=== PATIENT | female | born 1975 | race Asian ===

== ENCOUNTER 2017-02-14 11:27 | Outpatient (CLI) | payer MEDICAID ==
--- NOTE | 2017-02-14 15:08 | Ultrasound Report ---
LEFT BREAST ULTRASOUND: 02/14/2017 CLINICAL INDICATION: Palpable abnormality on clinical exam. TECHNIQUE: Real-time scanning was performed with fraud representative static images obtained. FINDINGS: Ultrasound of the 12 o'clock left breast was performed. The patient was unable to localiz e a palpable abnormality at the time of the examination. Unremarkable parenchymal lobules are seen. No discrete solid or cystic mass is identified. No sonog raphically suspicious findings are seen. IMPRESSION: NEGATIVE EXAMINATION. RECOMMENDATION: Continued clinical evaluation of the palpable abnormality. Routine annual screening , unless otherwise clinically indicated. BI-RADS category 1, negative. JOB #: [id number] EXT JOB #:
--- NOTE | 2017-02-14 18:52 | Mammography Report ---
DIGITAL DIAGNOSTIC BILATERAL MAMMOGRAM: 02/14/2017 CLINICAL INDICATION: A 42-year-old with palpable abnormality 12 o'clock left breast on clinical exam ination, left upper breast pain. TECHNIQUE: Bilateral CC and MLO views, bilateral laterally exaggerated CC views, left true lateral v iew. The patient was unable to identify a palpable abnormality at the time of the examination, so no marker was placed. The patient described the pain as extending across the entire upper left breast. This is the patient's baseline examination. The breasts demonstrate heterogeneously dense fibroglandular parenchyma bilaterally. A few coarse an d punctate, typically benign calcifications are present. No suspicious masses, clustered microcalcif ications, or regions of architectural distortion are identified. Specifically, no mammographic abnor mality is appreciated at the 12 o'clock position of the left breast, at the site of palpable abnormal ity indicated on the requisition. Please also refer to left breast ultrasound of the same day. IMPRESSION: BENIGN FINDINGS. RECOMMENDATION: ROUTINE ANNUAL SCREENING UNLESS OTHERWISE CLINICALLY INDICATED. BIRADS CATEGORY: 2, BENIGN FINDINGS. STANDARD QUALIFYING STATEMENTS 1. This examination was reviewed with the aid of Computed-Aided Detection (CAD). 2. A negative or benign imaging report should not delay biopsy if clinically suspicious findings are present. Consider surgical consultation if warranted. More than 5% of cancers are not identified b y imaging. 3. Dense breasts may obscure an underlying neoplasm. JOB #: [id number] EXT JOB #:[id number]
== END 2017-02-14 11:28 | disposition home or self-care (01) ==
LOC: DI 11:27
PROVIDERS: ATTEND Nurse Practitioner Gerontology
DX: N63.22 Unspecified lump in the left breast, upper inner quadrant (principal); N63.21 Unspecified lump in the left breast, upper outer quadrant
CPT/HCPCS: 76642; 77066

== ENCOUNTER 2018-01-05 19:10 | Emergency (ER) | payer OTHER, MEDICAID ==
[2018-01-05 19:21] VITALS: BP 147/88
--- NOTE | 2018-01-05 19:44 | ED Physician Documentation ---
PD HPI LOWER EXT INJURY - Stated complaint Stated Complaint: L ANKLE PX/FALL - Chief complaint Chief Complaint: Ext Problem - History obtained from History obtained from: Patient - History of Present Illness PD HPI LOW EXT INJURY LOCATION: Left, Ankle Pain level max: 6 Pain level now: 3 Improved by: Rest, Ice, Immobilization Worsened by: Moving, Other (walking) Associated symptoms: Swelling. No: Weakness, Numbness, Tingling - Additional information Additional information: Patient is a 42-year-old female who presents to the emergency department after tripping and falling down the stairs at this morning. She rolled the left ankle. This happened while she was at work. She has been ambulating on the ankle throughout the day but has become more painful and swollen. Came in tonight for evaluation. Took Tylenol prior to arrival and pain is well controlled. Review of Systems : denies: Now EGA Musculoskeletal: denies: Neck pain, Back pain Neurologic: denies: Focal weakness, Numbness, Head injury PD PAST MEDICAL HISTORY - Past Medical History Past Medical History: No Cardiovascular: None Respiratory: None Neuro: None Endocrine/Autoimmune: None GI: None PERCUSSION TUNER: None : None HEENT: None Psych: None Musculoskeletal: None Derm: None - Past Surgical History Past Surgical History: No - Allergies Allergies/Adverse Reactions: Allergies Allergy/AdvReac Type Severity Reaction Status Date / Time codeine [Codeine] Allergy Mild Hives Verified 01/05/18 19:20 erythromycin base Allergy Edema Verified 01/05/18 19:20 cillins Allergy Intermediate Edema Uncoded 01/05/18 19:20 oranges AdvReac Intermediate Nausea Uncoded 01/05/18 19:20 - Social History Does the pt smoke?: Yes Smoking Status: Current every day smoker Does the pt drink ETOH?: Yes Does the pt have substance abuse?: No - Immunizations Immunizations are current?: Yes PD ED PE NORMAL - Vitals Vital signs reviewed: Yes - General General: Alert and oriented X 3, No acute distress - HEENT HEENT: Moist mucous membranes - Neck Neck: Supple, no meningeal sign - Derm Derm: Warm and dry - Extremities Extremities: Other (L ankle - TTP and swelling over the lateral malleolus. NVI. o/w normal ankle exam. ) - Neuro Neuro: Alert and oriented X 3 - Psych Psych: Normal mood, Normal affect Results - Vitals Vitals: Vital Signs - 24 hr 01/05/18 19:17 Temperature 36.9 C Heart Rate 79 Respiratory 16 Rate Blood Pressure 147/88 H O2 Saturation 98 Oxygen O2 Source Room air - Rads (name of study) L ankle xray Radiology: Prelim report reviewed, EMP read contemporaneously, See rad report ( normal ankle) PD MEDICAL DECISION MAKING - ED course Complexity details: reviewed results, re-evaluated patient, considered differential, d/w patient, d/w family ED course: Patient is a 42-year-old female with an ankle sprain. X-rays are negative. Placed in a gel splint for comfort. Will continue supportive care. Labor and industries paperwork filled out. Counseled regarding missed fractures and may need repeat xrays if not improving. Patient counseled regarding signs and symptoms for which I believe and urgent re-evaluation would be necessary. Patient with good understanding of and agreement to plan and is comfortable going home at this time This document was made in part using voice recognition software. While efforts are made to proofread this document, sound alike and grammatical errors may occur. - Sepsis Event Vital Signs: Vital Signs - 24 hr 01/05/18 19:17 Temperature 36.9 C Heart Rate 79 Respiratory 16 Rate Blood Pressure 147/88 H O2 Saturation 98 Oxygen O2 Source Room air Departure - Departure Disposition: 01 Home, Self Care Clinical Impression: Ankle sprain Qualifiers: Encounter type: initial encounter Involved ligament of ankle: unspecified ligament Laterality: left Qualified Code(s): S93.402A - Sprain of unspecified ligament of left ankle, initial encounter Condition: Good Instructions: ED Sprain Ankle W X Ray Follow-Up: your,doctor in 1 week [Other] Comments: You can use motrin or tylenol as needed for pain. Return if you worsen. You may bear weight as tolerated. Discharge Date/Time: 01/05/18 19:52
--- NOTE | 2018-01-05 20:08 | XRAY Report ---
Reason: rolled her ankle today, now bruising and pain Procedure Date: 01/05/2018 Accession Number: [id number] / [id number] Procedure: XR - Ankle 3 View LT CPT Code: FULL RESULT: EXAM: LEFT ANKLE RADIOGRAPHY EXAM DATE: 01/05/2018 07:44 PM. CLINICAL HISTORY: Rolled her ankle today, now bruising and pain. COMPARISON: ANKLE 3 VIEW LT 09/02/2012. TECHNIQUE: 3 views. FINDINGS: Bones: No fracture or focal bony lesion. Joints: No evidence of dislocation. Soft Tissues: There is lateral ankle soft tissue swelling. IMPRESSION: No evidence of fracture or dislocation. RADIA
== END 2018-01-05 19:52 | disposition home or self-care (01) ==
LOC: ED 19:10
DX: S93.402A Sprain of unspecified ligament of left ankle, initial encounter (principal); W10.9XXA Fall (on) (from) unspecified stairs and steps, initial encounter; Y99.0 Civilian activity done for income or pay
CPT/HCPCS: 1040M; 73610; 99283

== ENCOUNTER 2018-04-11 03:33 | Inpatient (IN) | payer MEDICAID ==
[2018-04-11] MEDS ORDERED: SODIUM CHLORIDE 0.9% 1,000 ML IV ONE ×4 (03:49→05:52)
[2018-04-11] MEDS ORDERED: MORPHINE 2 MG/ML CARPUJECT IVP STA (03:49)
[2018-04-11] MEDS ORDERED: ONDANSETRON 4 MG/2 ML VIAL IVP STA (03:50)
--- NOTE | 2018-04-11 03:52 | ED Physician Documentation ---
PD HPI ABD PAIN - Stated complaint Stated Complaint: ABD PX - Chief complaint Chief Complaint: Abd Pain - History obtained from History obtained from: Patient, Family - History of Present Illness Timing - onset: Yesterday Timing - duration: Hours (28) Timing - details: Gradual onset, Waxing and waning Pain level max: 10 Pain level now: 10 Quality: Aching, Pain Location: All over / everywhere Radiation: Other (non-radiating) Improved by: Laying still Worsened by: Moving Associated symptoms: Fever, Nausea, Vomiting, Diarrhea. No: Constipation, Melen a, Hematochezia, Dysuria, Hematuria, Near syncope / syncope Similar symptoms before: Has not had sx before Recently seen: Not recently seen Review of Systems Ten Systems: 10 systems reviewed and negative Constitutional: reports: Fever (subjective). 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 : None HEENT: None Psych: None Musculoskeletal: None Derm: None - Past Surgical History Past Surgical History: No - Present Medications Home Medications: Ambulatory Orders Medication Instructions Recorded Confirmed Cream Topical For Psoriasis 04/11/18 - Allergies Allergies/Adverse Reactions: Allergies Allergy/AdvReac Type Severity Reaction Status Date / Time codeine [Codeine] Allergy Mild Hives Verified 04/11/18 03:51 erythromycin base Allergy Edema Verified 04/11/18 03:51 cillins Allergy Intermediate Edema Uncoded 04/11/18 03:51 oranges AdvReac Intermediate Nausea Uncoded 04/11/18 03:51 - Social History Does the pt smoke?: Yes Smoking Status: Current every day smoker Does the pt drink ETOH?: Yes Does the pt have substance abuse?: No - Immunizations Immunizations are current?: Yes PD ED PE NORMAL - Vitals Vital signs reviewed: Yes - General General: Alert and oriented X 3, Other (appears in pain) - HEENT HEENT: Moist mucous membranes - Neck Neck: Supple, no meningeal sign - Cardiac Cardiac: RRR - Respiratory Respiratory: No respiratory distress, Clear bilaterally - Abdomen Abdomen: Soft, Other (Diffusely tender to palpation, but seems worse in the right lower quadrant. Positive rebound) - Back Back: No spinal TTP - Derm Derm: Warm and dry - Extremities Extremities: No edema - Neuro Neuro: Alert and oriented X 3 Results - Vitals Vitals: Vital Signs - 24 hr 04/11/18 04/11/18 04/11/18 03:35 04:15 04:52 Temperature 36.5 C 37.1 C Heart Rate 108 H 89 102 H Respiratory 20 16 18 Rate Blood Pressure 100/57 L 100/69 113/76 O2 Saturation 98 100 100 Oxygen O2 Source Room air - Labs Labs: Laboratory Tests 04/11/18 04/11/18 04/11/18 03:45 03:45 03:45 WBC 20.2 H RBC 4.74 Hgb 14.6 Hct 44.5 MCV 93.8 MCH 30.8 MCHC 32.8 RDW 14.3 Plt Count 285 MPV 8.0 Neut # (Auto) Not Reportable Lymph # (Auto) Not Reportable Tillman # (Auto) Not Reportable Eos # (Auto) Not Reportable Baso # (Auto) Not Reportable Absolute Nucleated RBC Not Reportable Total Counted 100 Band Neuts % (Manual) 12 H Abnorm Lymph % (Manual) 0 Nucleated RBC % Not Reportable Neutrophils # (Manual) 18.2 H Lymphocytes # (Manual) 1.2 L Monocytes # (Manual) 0.6 Eosinophils # (Manual) 0.2 Basophils # (Manual) 0.0 Differential Comment MANUAL DIFFERENTIAL Platelet Estimate NORMAL (130-450,000) RBC Morph Micro Appear NORMAL APPEARANCE Sodium 133 L Potassium 3.5 Chloride 102 Carbon Dioxide 21 Anion Gap 10.0 BUN 8 Creatinine 0.9 Estimated GFR (MDRD) 68 L Glucose 139 H Calcium 8.7 Total Bilirubin 0.4 AST 19 ALT < 10 L Alkaline Phosphatase 57 Total Protein 8.2 Albumin 3.8 Globulin 4.4 H Albumin/Globulin Ratio 0.9 L Lipase 19 L Serum HCG, Qual NEGATIVE - Rads (name of study) CT abd/pelvis Radiology: Prelim report reviewed, EMP read contemporaneously, See rad report (perforated appendicitis) PD MEDICAL DECISION MAKING - ED course Complexity details: reviewed results, re-evaluated patient, considered differential, d/w patient, d/w family, d/w [facility] consultant ED course: 43-year-old female with a perforated appendicitis. Given IV fluids, started on broad-spectrum antibiotics. She is allergic to penicillin. Discussed the case with Dr. Peñaloza, general surgery who recommends admission to the hospitalist at this point for IV antibiotics and he will consult this morning to determine surgical timing. Pain well controlled in the emergency department. Discussed the case with Dr. Ramos, hospitalist who accepts This document was made in part using voice recognition software. While efforts are made to proofread this document, sound alike and grammatical errors may occur. Departure - Departure Disposition: 66 [facility] DC/Xfer Clinical Impression: Perforated appendicitis Condition: Stable
[2018-04-11 03:55] LABS: BASOPHILS % (AUTO) 0.1 %; HGB - HEMOGLOBIN 14.6 g/dL (12.0-16.0); LYMPHOCYTES % (AUTO) 3.5 %; MEAN CORPUSCULAR HEMOGLOBIN 30.8 pg (27.0-31.0); MEAN CORPUSCULAR HGB CONC 32.8 g/dL (32.0-36.0); MEAN CORPUSCULAR VOLUME 93.8 fL (81.0-99.0); MONOCYTES % (AUTO) 1.6 %; NEUTROPHILS % (AUTO) 94.8 %; PLT - PLATELET COUNT 285 10^3/uL (130-450); RED BLOOD COUNT 4.74 10^6/uL (4.20-5.40); RED CELL DISTRIBUTION WIDTH 14.3 % (12.0-15.0); WHITE BLOOD COUNT 20.2 x10^3/uL (4.8-10.8)
[2018-04-11 03:56] LABS: ABNORMAL LYMPHS % (MANUAL) 0 %
[2018-04-11 04:05] LABS: ALBUMIN 3.8 g/dL (3.2-5.5); ALBUMIN/GLOBULIN RATIO 0.9 (1.0-2.2); ALKALINE PHOSPHATASE 57 IU/L (42-121); ALT ALANINE AMINOTRANSFERASE < 10 IU/L (10-60); AST ASPARTATE AMINOTRANSFERASE 19 IU/L (10-42); BILIRUBIN,TOTAL 0.4 mg/dL (0.2-1.0); BUN - BLOOD UREA NITROGEN 8 mg/dL (6-20); CALCIUM 8.7 mg/dL (8.5-10.3); CARBON DIOXIDE - CO2 21 mmol/L (21-32); CHLORIDE 102 mmol/L (101-111); CREATININE 0.9 mg/dL (0.4-1.0); GFR - MDRD 68 (>89); GLUCOSE 139 mg/dL (70-100); LIPASE 19 U/L (22-51); SODIUM 133 mmol/L (135-145); TOTAL PROTEIN 8.2 g/dL (6.7-8.2)
[2018-04-11] MEDS ORDERED: IOVERSOL 320 100 ML VIAL IVP ONE ×2 (04:08→04:33)
[2018-04-11 04:19] LABS: BAND NEUTROPHILS % (MANUAL) 12 %; DIFFERENTIAL COMMENT MANUAL DIFFERENTIAL; EOSINOPHILS # (MANUAL) 0.2 10^3/uL (0-0.7); LYMPHOCYTES # (MANUAL) 1.2 10^3/uL (1.5-3.5); LYMPHOCYTES % (MANUAL) 6 %; MONOCYTES # (MANUAL) 0.6 10^3/uL (0.0-1.0); NEUTROPHILS # (MANUAL) 18.2 10^3/uL (1.5-6.6); NEUTROPHILS % (MANUAL) 78 %; PLATELET ESTIMATE, MANUAL NORMAL (130-450,000) (NORMAL); RBC MORPHOLOGY (MULTIPLE) NORMAL APPEARANCE (NORMAL)
[2018-04-11 04:21] LABS: HCG,QUALITATIVE BLOOD NEGATIVE
--- NOTE | 2018-04-11 04:46 | CT Report ---
Reason: diffuse abd pain Procedure Date: 04/11/2018 Accession Number: [id number] / [id number] Procedure: CT - Abdomen/Pelvis W/ CPT Code: FULL RESULT: EXAM: CT ABDOMEN AND PELVIS EXAM DATE: 04/11/2018 04:31 AM. CLINICAL HISTORY: Diffuse abdomen pain. COMPARISONS: None. TECHNIQUE: Routine helical CT imaging was performed through the abdomen and pelvis. IV contrast: Yes. Enteric contrast: No. Reconstructions: Coronal and sagittal. In accordance with CT protocol optimization, one or more of the following dose reduction techniques were utilized for this exam: automated exposure control, adjustment of mA and/or KV based on patient size, or use of iterative reconstructive technique. FINDINGS: Lung Bases: Unremarkable. Liver: Unremarkable. No suspicious masses. Gallbladder/Bile Ducts: Unremarkable. Spleen: Unremarkable. Pancreas: Unremarkable. Adrenal Glands: Unremarkable. Kidneys: Small left renal cyst. No suspicious masses or hydronephrosis. Peritoneal Cavity/Bowel: Abnormal inflamed appendix with wall discontinuity is best visualized on axial images 54 through 62 in the deep right pelvis with a maximum diameter of 11 mm and moderate surrounding inflammatory changes. No gross perforation or organized abscess. Mild fluid in the pelvis may be secondary to appendicitis as well as a recently collapsed left ovarian corpus luteum. Bowel otherwise appears unremarkable. Pelvic Organs: Bladder, uterus, and adnexa appear unremarkable with note of a recently collapsed left ovarian corpus luteum. Vasculature: No aneurysms or other significant abnormality. Bones: No significant abnormality. Other: None. IMPRESSION: Perforated appendicitis without organized abscess. RADIA
[2018-04-11] MEDS ORDERED: PIPERACILLIN/TAZOBACTAM 4.5 GM in SODIUM CHLORIDE 0.9% MINIBAG 100 ML IV STA (04:47)
[2018-04-11] MEDS ORDERED: CEFUROXIME 1.5 GM VIAL IVP STA (04:49)
[2018-04-11] MEDS ORDERED: metroNIDAZOLE 500 MG/100 ML 500 MG/100 ML BAG IV ONE (04:50)
[2018-04-11] MEDS ORDERED: SODIUM CHLORIDE FLUSH 0.9% 10 ML SYRINGE IVP PRN (05:38)
[2018-04-11] MEDS ORDERED: ONDANSETRON 4 MG/2 ML VIAL IVP PRN (05:38)
[2018-04-11] MEDS ORDERED: PROCHLORPERAZINE 10 MG/2 ML VIAL IVP PRN (05:38)
[2018-04-11 05:52] LABS: BILIRUBIN,URINE NEGATIVE (NEGATIVE); GLUCOSE, URINE (UA) NEGATIVE (NEGATIVE); KETONES,URINE (UA) NEGATIVE (NEGATIVE); LEUKOCYTE ESTERASE, URINE NEGATIVE (NEGATIVE); NITRITE,URINE NEGATIVE (NEGATIVE); OCCULT BLOOD,URINE NEGATIVE (NEGATIVE); PROTEIN,URINE NEGATIVE (NEGATIVE); UROBILINOGEN,URINE 0.2 (NORMAL) E.U./dL (NORMAL)
[2018-04-11 05:54] LABS: CLARITY,URINE CLEAR (CLEAR)
[2018-04-11 06:24] LABS: INR 1.5 (0.8-1.2); PT - PROTHROMBIN TIME 16.8 secs (9.9-12.6)
--- NOTE | 2018-04-11 06:57 | HISTORY & PHYSICAL EXAMINATION ---
DATE OF SERVICE: 04/11/2018 Physician: Ailin Ramos MD CHIEF COMPLAINT: Abdominal pain. HISTORY OF PRESENT ILLNESS: Patient is a pleasant, 43-year-old female with past medical history of psoriasis. No other past medical problem. She never had any abdominal surgeries. She does not have history of hypertension, diabetes, or coronary artery disease and takes no outpatient medications except for [id number] ibuprofen and an ointment for psoriasis. She was in her usual state of health up to 2 days ago. At that time, she ate out, ate Brazilian food. Subsequently, she became sick to her stomach, felt unwell and thought that she had food poisoning. She had some mild abdominal discomfort with cramping. It was not a severe discomfort; therefore, she did not seek medical attention. Subsequently, the next day, her discomfort got worse and, around midnight, she developed severe pain. At that time, she had lower quadrant, right-sided, sharp abdominal pain. It was associated with chills. She also became nauseous and vomited a couple of times. There was no blood in her vomitus. The next day, she started to have diarrhea with loose bowel movements. Her abdominal pain continued and was unbearable, 10/10 in intensity. 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 Upon presentation to the ER, the patient was tachycardic, had elevated temperature. Heart rate was 108. Temperature maximum was 37.1, blood pressure was borderline 100/50, respiratory rate was 20, oxygen saturation 100% on room air. White blood cell count was elevated at 20. There was neutrophil predominance. Hemoglobin was normal. Platelet count was normal. Sodium was 133, potassium 3.5. Blood glucose was 139. Lactic acid was unremarkable. Lipase was normal. HCG was negative. Urinalysis was negative. Patient underwent CT scan of the abdomen and pelvis, which showed perforated appendicitis without abscess. At the ER, patient received 3 liter normal saline bolus. Initially, Zosyn was ordered, subsequently was switched to Flagyl and Ceftin. The case was discussed with the on-call surgeon, Dr. Peñaloza, who will see the patient in consultation; however, he requested the medical service to admit, considering that the patient will need IV antibiotic treatment following surgery. PAST MEDICAL HISTORY: Psoriasis. OUTPATIENT MEDICATIONS: Topical ointment for psoriasis and wcld-[id number] ibuprofen on and off for aches and pains. FAMILY HISTORY: Diabetes in an aunt. No chronic medical illnesses in first degree relatives. SOCIAL HISTORY: Patient smokes cigarettes. She drinks alcohol, about 3 alcoholic drinks per week. She has a fiance who accompanied her to the ER. 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 REVIEW OF SYSTEMS: Please see pertinent positives listed above at history of present illness. I completed 12-system review, and there was no additional complaint, all other systems were negative. PHYSICAL EXAMINATION VITAL SIGNS: Please see listed above at history of present illness. GENERAL: The patient is a well-developed, well-nourished, young female who was not in distress, although complained of abdominal pain. HEENT: Oral mucosa dry. SKIN: Without jaundice or skin rash. There was a small bruise on the right lateral lower leg. LYMPHATIC: No lymphedema. MUSCULOSKELETAL: Small bruise on the right lower extremity, otherwise atraumatic. ABDOMEN: Not much bowel tone, voluntary guarding. Rebound tenderness at the right lower quadrant. CARDIOVASCULAR: S1, S2. Regular. No pathologic murmur. RESPIRATORY: Clear to auscultation bilaterally without wheezes or crackles. NEUROLOGIC: Alert, oriented, nonfocal. PSYCHIATRIC: Cooperative, pleasant to talk to. ASSESSMENT AND PLAN: Patient is a 43-year-old female who is getting admitted with acute appendicitis, with complication of perforation. She does rule in for sepsis criteria, having tachycardia, elevated temperature, elevated white blood cell count and the source being intraabdominal. She has mild electrolyte abnormalities including hyponatremia. At the time of my exam, her pain was uncontrolled. PLAN AND ORDERS: Patient is getting admitted as an inpatient. I expect more than 48 hours hospital stay, patient requiring IV antibiotic treatment. I would give IV antibiotics for anywhere between 3-5 days depending on the clinical course. Three liters IV fluid bolus was already given, ordered another one plus maintenance fluids with D5 normal saline and potassium. Regarding antibiotic choice, I would go with a single antibiotic, which will be Zosyn. Add coagulation studies and EKG, anticipating surgery. Pain control will be with morphine and Toradol. DVT prophylaxis, symptom control. FULL CODE. Attestation: I certify that the reasonable expectation is for this patient to stay hospitalized for at least 48 hrs but to discharge or transfer to another facility within 96 hrs. She meets inpatient criteria based on sepsis secondary to perforated appendicitis. Time spent in the care of this patient was 55 minutes. TD: 04/11/2018 06:22 ANDRZEJ
[2018-04-11] MEDS: KETOROLAC 15 MG/ML VIAL IVP PRN ×2 (06:59→18:41)
[2018-04-11] MEDS: MORPHINE 2 MG/ML CARPUJECT IVP PRN ×3 (07:07→12:02)
[2018-04-11] MEDS ORDERED: SODIUM CHLORIDE FLUSH 0.9% 10 ML SYRINGE IVP SCH (09:00)
[2018-04-11] MEDS ORDERED: BUPIVACAINE 0.5% PF 30 ML VIAL ONE (09:44)
[2018-04-11] MEDS: D5NS W/20 MEQ KCL 1,000 ML IV SCH ×2 (10:13→20:57)
--- NOTE | 2018-04-11 11:00 | ANESTHESIA ---
Pre-Anesthesia VS, & Labs - Diagnosis Acute Appendicitis - Procedure Laparoscopic appendectomy Vital Signs: Temp Pulse Resp BP Pulse Ox 37.4 C 104 H 16 137/78 H 99 04/11/18 06:45 04/11/18 06:45 04/11/18 06:45 04/11/18 06:45 04/11/18 06:45 Height 4 ft 11 in Weight (kg) 56 kg Body Mass Index 24.9 - NPO >8 hours - Is Patient ?: No - Lab Results Current Lab Results: Laboratory Tests 04/11/18 05:12: Lactic Acid 1.5 04/11/18 03:45: PT 16.8 H, INR 1.5 H, APTT 27.5 04/11/18 03:45: Serum HCG, Qual NEGATIVE 04/11/18 03:45: Sodium 133 L, Potassium 3.5, Chloride 102, Carbon Dioxide 21, Anion Gap 10.0, BUN 8, Creatinine 0.9, Estimated GFR (MDRD) 68 L, Glucose 139 H, Calcium 8.7, Total Bilirubin 0.4, AST 19, ALT < 10 L, Alkaline Phosphatase 57, Total Protein 8.2, Albumin 3.8, Globulin 4.4 H, Albumin/Globulin Ratio 0.9 L, Lipase 19 L 04/11/18 03:45: WBC 20.2 H, RBC 4.74, Hgb 14.6, Hct 44.5, MCV 93.8, MCH 30.8, MCHC 32.8, RDW 14.3, Plt Count 285, MPV 8.0, Neut # (Auto) Not Reportable, Lymph # (Auto) Not Reportable, [place]hin # (Auto) Not Reportable, Eos # (Auto) Not Reportable, Baso # (Auto) Not Reportable, Absolute Nucleated RBC Not Reportable, Total Counted 100, Band Neuts % (Manual) 12 H, Abnorm Lymph % (Manual) 0, Nucleated RBC % Not Reportable, Neutrophils # (Manual) 18.2 H, Lymphocytes # (Manual) 1.2 L, Monocytes # (Manual) 0.6, Eosinophils # (Manual) 0.2, Basophils # (Manual) 0.0, Differential Comment MANUAL DIFFERENTIAL, Platelet Estimate NORMAL (130-450,000), RBC Morph Micro Appear NORMAL APPEARANCE Lab results reviewed: Yes Fish Bones: 04/11/18 03:45 04/11/18 03:45 Home Medications and Allergies Home Medications: Ambulatory Orders Clotrimazole/Betamethasone Dip [Clotrimazole-Betamethasone Crm] 1 applic TOP BID 04/11/[address] [Voltaren] 75 mg PO BIDWM 04/11/18 Active Medications Enoxaparin Sodium (Lovenox) 40 mg SUBQ DAILY [facility] Potassium Chloride/Dextrose/Sod Cl () 1,000 mls @ 100 mls/hr IV .Q10H [facility] Last Admin: 04/11/18 10:13 Dose: 100 mls/hr Famotidine (Pepcid 20 Mg/50 Ml) 50 mls @ 100 mls/hr IV BID [facility] Piperacillin Sod/Tazobactam (Sod 3.375 gm/ Sodium Chloride) 100 mls @ 200 mls/hr IV Q8HR [facility] Ketorolac Tromethamine (Toradol Inj (15mg)) 15 mg IVP Q8HR PRN PRN Reason: PAIN Stop: 04/16/18 05:42 Last Admin: 04/11/18 06:59 Dose: 15 mg Morphine Sulfate (Morphine (Carpuject)) 4 mg IVP Q2HR PRN PRN Reason: Pain 8 to 10 Last Admin: 04/11/18 09:25 Dose: 4 mg Ondansetron HCl (Zofran Inj) 4 mg IVP Q6HR PRN PRN Reason: Nausea / Vomiting Prochlorperazine Edisylate (Compazine Inj) 10 mg IVP Q6HR PRN PRN Reason: Nausea / Vomiting Sodium Chloride (Normal Saline Flush 0.9%) 10 ml IVP PRN PRN PRN Reason: NEEDED PER PROVIDER ORDERS Sodium Chloride (Normal Saline Flush 0.9%) 10 ml IVP 0100,0900,1700 [facility] Last Admin: 04/11/18 10:43 Dose: Not Given Clotrimazole/Betamethasone Dip [Clotrimazole-Betamethasone Crm] 1 applic TOP BID 04/11/[address] [Voltaren] 75 mg PO BIDWM 04/11/18 Allergies/Adverse Reactions: Allergies Allergy/AdvReac Type Severity Reaction Status Date / Time codeine [Codeine] Allergy Mild Hives Verified 04/11/18 03:51 erythromycin base Allergy Edema Verified 04/11/18 03:51 cillins Allergy Intermediate Edema Uncoded 04/11/18 03:51 oranges AdvReac Intermediate Nausea Uncoded 04/11/18 03:51 Anes History & Medical History - Medical History Cardiovascular: reports: None Pulmonary: reports: None Gastrointestinal: reports: None Urinary: reports: None Neuro: reports: None Musculoskeletal: reports: None Endocrine/Autoimmune: reports: None Blood Disorders: reports: None Skin: reports: None Smoking Status: Current every day smoker Exam General: Alert, Oriented x3, Cooperative Dental: WNL, Other (multiple cracked teeth at upper left, cracked tooth) Mouth Openin Fingerbreadth Neck Mobility: Normal Mallampati classification: II Thyromental Distance: 4-6 cm Respiratory: Lungs clear, Normal breath sounds Cardiovascular: Regular rate Neurological: Normal speech Mental/Cognitive Status: Alert/Oriented X3, Normal for patient Plan Anesthesia Type: General Consent for Procedure(s) Verified and Reviewed: Yes Code Status: Attempt Resuscitation ASA classification: 2-Mild systemic disease Is this case an emergency?: No
[2018-04-11] MEDS: FAMOTIDINE 20 MG/50 ML 50 ML IV SCH ×2 (12:04→20:57)
[2018-04-11] MEDS ORDERED: NEOSTIGMINE 1 MG/1 ML 10 ML MDV IVP ONE (12:50)
[2018-04-11] MEDS ORDERED: GLYCOPYRROLATE 1 MG/5 ML VIAL IVP ONE (12:50)
[2018-04-11] MEDS ORDERED: PROPOFOL 200 MG/20 ML VIAL IVP ONE (12:50)
[2018-04-11] MEDS ORDERED: LIDOCAINE-MPF 2% 5 ML VIAL IM ONE (12:50)
[2018-04-11] MEDS ORDERED: ROCURONIUM 50 MG/5 ML VIAL IVP ONE (12:50)
[2018-04-11] MEDS ORDERED: ONDANSETRON 4 MG/2 ML VIAL IVP ONE (12:50)
[2018-04-11] MEDS ORDERED: MIDAZOLAM 2 MG/2 ML VIAL IVP ONE (12:50)
[2018-04-11] MEDS ORDERED: DEXAMETHASONE 4 MG/ML VIAL IVP ONE (12:50)
[2018-04-11] MEDS ORDERED: fentaNYL 100 MCG/2 ML VIAL IVP ONE (12:50)
[2018-04-11] MEDS ORDERED: BUPIVACAINE 0.5% PF 30 ML VIAL INFIL ONE (12:53)
[2018-04-11] MEDS ORDERED: LACTATED RINGERS 1,000 ML IV ONE ×2 (12:53→14:07)
[2018-04-11] MEDS ORDERED: PIPERACILLIN/TAZOBACTAM 3.375 GM in SODIUM CHLORIDE 0.9% MINIBAG 100 ML IV SCH (13:00)
[2018-04-11] MEDS ORDERED: cefTRIAXone 2 GM VIAL ONE (13:01)
--- NOTE | 2018-04-11 14:02 | CONSULTATION NOTE ---
Referring Provider Name of Referring Provider:: Dr. Lam Consult Date: 04/11/18 Chief Complaint - Chief Complaint Chief Complaint: Abdominal pain localizing to right lower quadrant History of Present Illness - Admitted From Admitted From:: [facility] ED - History Obtained From Records Reviewed: Yes History obtained from: . Exam Limitations: None. - History of Present Illness HPI Comment/Other: This very pleasant 43-year-old female is evaluated in Room [address] [facility]'s MedSurg unit. As the patient was sleeping obtain some of the history from her fiancTonio. Essentially the patient started having symptoms between Monday night and Monday morning around midnight. This was described as generalized abdominal pain and the patient thought that she had eaten some bad food. She thought this would improve and in fact went to work. When this did not improve she went home and resisted coming to the emergency department. Her fianc finally convinced her to go to the emergency room where elevated white blood cell count as well as CT findings were all consistent with perforated appendicitis. The patient states that she thought she had a fever but did not take her temperature. There was nausea along with this. Vomiting was not a ma lucero feature. Of note I finally did wake up the patient in order to consent her and confirmed most of the story with her. 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 : reports: None HEENT: reports: None Psych: reports: Anxiety Musculoskeletal: reports: None Derm: reports: None MRSA Hx?: No - POLST Patient has POLST: No Meds/Allgy - Home Medications Home Medications: Ambulatory Orders Medication Instructions Recorded Confirmed Clotrimazole/Betamethasone Dip 1 applic TOP BID 04/11/18 04/11/18 [Clotrimazole-Betamethasone Crm] Diclofenac Sodium Dr [Voltaren] 75 mg PO BIDWM 04/11/18 04/11/18 - Allergies Allergies/Adverse Reactions: Allergies Allergy/AdvReac Type Severity Reaction Status Date / Time codeine [Codeine] Allergy Mild Hives Verified 04/11/18 03:51 erythromycin base Allergy Edema Verified 04/11/18 03:51 cillins Allergy Intermediate Edema Uncoded 04/11/18 03:51 oranges AdvReac Intermediate Nausea Uncoded 04/11/18 03:51 Exam - Vital Signs Reviewed Vital Signs: Yes Vital Signs: Vital Signs x48h Temp Pulse Pulse Resp BP BP Pulse Ox 04/11/18 06:45 37.4 C 104 H 16 137/78 H 99 04/11/18 06:22 37.1 C 83 16 108/70 97 - Physical Exam General Appearance: positive: Mild distress (Clearly in abdominal discomfort especially with movement.) Eyes Bilateral: positive: No lid inflammation, Conjunctivae nml, No scleral i cterus ENT: positive: Dry mucous membranes Neck: positive: Trachea midline Respiratory: positive: Chest non-tender, No respiratory distress, Breath sounds nml Cardiovascular: positive: Regular rate & rhythm Abdomen: positive: No organomegaly, Tenderness (Peritoneal in nature especially in RLQ better elsewhere but still painful.), Abnml bowel sounds (Decreased.) Skin: positive: Diaphoresis (Slightly.), Pallor (Slightly. Appears sickly.) Extremities: positive: Non-tender, Nml appearance Neurologic/Psychiatric: positive: Oriented x3 Comments/Other: Evaluated in Room 2212 [facility] MS unit. In the presence of her Tonio stewart. Conclusion/Plan - Diagnosis Diagnosis: Acute ruptured appendicitis - Plan Plan: Laparoscopic appendectomy, possible open appendectomy, placement of drain. The indications, procedure, alternatives including no surgery, possible risks includ ing infection (deep or superficial), bleeding requiring transfusion (with all of its risks), and were fully explained to the patient and all questions answered. I also explained the pathophysiology. I explained that following the surgery I did not want her lifting anything over 15 pounds for 6 weeks to allow for optimal healing and to decrease the likelihood that a hernia would occur. All questions were fully answered. Verbal and written consent was obtained. The patient, in preparation for surgery will be nothing by mouth, and continue to receive the Flagyl and Ceftin that she has already received. I asked her to contact me with any surgical questions and her concerns and she stated that she would. I asked her to let me know if there is any way we can make her stay at [facility] more comfortable and she stated that she would let me know. I went on to explain that if her appendix is indeed ruptured that she should be kept in the hospital at least for several days of IV antibiotics. Prior to discharge I would like to see her pain completely resolved with the exception of post operative pain. I would like to ensure that she does not have a fever and her white count normalizes or nearly normalizes. Again if it is ruptured she should go home on oral antibiotics after she transitions from IV. 45 minutes of [id number] time spent with the patient, over 80% in discussion and coordination of her care Kiya disclaimer: This document was created in part using voice recognition technology. Because of the inherent limitations of the system ([employer] Dict[employer] user manual states that the licensee understands that speech recognition is a statistical process and that recognition errors are inherent in the process), occasional same sounding word substitutions and grammatical errors do occur and persist despite proofreading. Please read this document for context. - Lab Results Lab results reviewed: Yes Fish Bones: 04/11/18 03:45 04/11/18 03:45 - Diagnostic Imaging Results Diagnostic Imaging Results: positive: Final report reviewed, Read independently
--- NOTE | 2018-04-11 14:05 | OPERATIVE REPORT ---
Operative Report - General Admit Date: 04/11/18 Planned Procedure: Laparoscopic appendectomy, possible open appendectomy, placement of drain Pre-Op Diagnosis: Acute perforated appendicitis Procedure Performed: Laparoscopic appendectomy and placement of drain Post Op Diagnosis: Retrocecal, pelvic, perforated acute appendicitis - Procedure Note Primary Surgeon: Zhao Peñaloza MD Anesthesia Provider: Kwan Wood CRNA Anesthesia Technique: General ET tube, Local (30 mL of half percent Marcaine) IV Fluids (mL): 1,000 Estimated Blood Loss (mL): 10 Drain/Tube Type: Kenton drain (15 Samoan placed in the right lower quadrant with the drain tracking along the right gutter) Complications: None. - Other Other Information/Narrative: OPERATIVE DESCRIPTION/REPORT: After verbal and written informed consent was obtained detailing the risks of infection, bleeding requiring transfusion with its risks, and , and after I met with the patient confirming the surgery and the site of the surgery, the patient was brought to the operative suite and placed supine on the operating table. Great care was taken to avoid pressure points to prevent pressure necrosis or nerve injury. Monitoring devices were applied along with TEDs and pneumatic compressive stockings (to prevent DVT). The patient received preoperative antibiotics for surgical prophylaxis. Kwan Wood CRNA sedated and anesthetized the patient for the entire procedure. The patient was prepped and draped in the usual sterile manner. With the patient draped my initials were clearly visible. A "time in" then confirmed that the patient was identified with 3 identifiers (name, date and medical record number), the history and physical was in the chart, the signed consent confirming the procedure was in the chart, the patient was in the correct position, the aforementioned prophylactic measures were in place or given, we had the correct personnel and equipment to complete the procedure and that anesthesia, surgery and nursing were given an opportunity to express any concerns. With the agreement of everyone in the room, we proceeded with the operation. A 2 cm incision umbilical incition was made and dissection down to the fascia was completed in a blunt and sharp manner. The fascia was then cleared of subcutaneous tissue using a tonsil clamp and a small incision was made in the fascia gaining entry into the abdomen without incident. A 12 mm blunt tipped balloon tipped Danyelle port was placed into the abdomen and the balloon inflated to keep it in place. The pneumoperitoneum was then established using carbon dioxide insufflation to a steady state pressure of 15 mmHg. Two additional 5 mm ports were placed in the midline above and in the right lower quadrant as I was expecting to have to place a drain. The patient was then rotated slightly to their left and slightly head down (Trendelenberg). There were numerous adhesions in the right lower quadrant as well as significant purulence. A suction loom fixer was used to remove most of the purulence. Despite the patient being in steep Trendelenburg and rotated to their left the appendix could not be seen. The terminal ileum as well as the cecum were adherent to the anterior lateral abdominal wall. These adhesions were taken down using traction countertraction but despite this the appendix appeared to be retrocecal as well as in the pelvis. I had to place an additional 5 mm port in the midline inferior to the umbilicus and this was done under direct vision without incident. This was done in order to be able to retract the cecum as well as the small bowel out of the way so that I could try and visualize the appendix. To summarize one port was used to retract the cecum, one port was used to retract the terminal ileum, the umbilicus was used for the camera, and the additional port was used as an operating port. With all of this retraction in place I was able to visualize the clearly abnormal thickened appendix which was densely adherent into the pelvis and a retrocecal position adherent to the right ovary. With traction and countertraction I was able to free the distal most appendix and use this to work proximally towards the base of the appendix. A photograph was taken. The mesoappendix was taken using sequential applications of the LigaSure. When I got to the base of the appendix it was clear that it had perforated there with an appendicolith present. The base of the appendix was then stapled using a laparoscopic stapler with a vascular load. Visualization of the staple line revealed absolutely no bleeding or leak of bowel contents. A photograph was taken and I positioned the transected appendix next to the mesoappendix to show where the base had been and where the perforation had occurred. My first attempt at placing the appendix into the Endopouch resulted in the appendix not staying in the Endopouch and I had to obtain another Endopouch in order to place the clearly abnormal appendix. Both these pouches were then removed and insufflation was then reobtained. The right lower quadrant was then copiously irrigated using a total of 3 L of warm sterile saline due to the large amount of purulence that was found. A 15 Samoan Kenton drain was cut to fit and then placed through the right lower quadrant port placing it under direct vision into the right lower quadrant and up along the right gutter. The right lower quadrant port was removed and the drain was sutured in place using a 3-0 nylon mattress suture that was then Adonis sandaled about the drain. The fascia and skin were then injected with the 30 cc of % marcaine for pain control. The insufflation was released and the ports removed. The fascial defect was then approximated using 0-Vicryl figure 8 suture. The skin incisions were approximated with 4-0 Monocryl in a subcuticular fashion. The drain was placed to grenade suction. The surgical prep was removed, and Dermabond was applied at the incisions. A dressing was applied. At this point a time out was performed that confirmed that all the counts were correct, the procedure that was performed, the blood loss, the urine output, the IV fluids administered, and the patients condition. Having tolerated the procedure well, the patient was subsequently extubated and taken to recovery room in good and stable condition. [employer] disclaimer: This document was created in part using voice recognition technology. Because of the inherent limitations of the system ([employer] user manual states that the licensee understands that speech recognition is a statistical process and that recognition errors are inherent in the process), occasional same sounding word substitutions and grammatical errors do occur and persist despite proofreading. Please read this document for context.
[2018-04-11] MEDS: ACETAMINOPHEN 1,000 MG/100 ML 100 ML IV SCH ×2 (14:31→20:51)
[2018-04-11] MEDS: CEFUROXIME IV SCH (16:05)
[2018-04-11] MEDS: SODIUM CHLORIDE 0.9% IV SCH (16:05)
[2018-04-11] MEDS: metroNIDAZOLE 500 MG/100 ML 500 MG/100 ML BAG IV SCH (16:42)
[2018-04-11] MEDS ORDERED: LORazepam 0.5 MG TABLET PO PRN (17:06)
--- NOTE | 2018-04-11 17:11 | PROVIDER PROGRESS NOTE ---
Subjective - Prog Note Date Prog Note Date: 04/11/18 - Subjective Pt reports feeling: Improved Subjective: pt report she feels her abdominal pain is better controlled. She report she had no fever at morning but had fever at last night. pt will have surgery today MARLON. pt denies chest pain, cough, SOB. Current Medications - Current Medications Current Medications: Active Medications Clotrimazole (Lotrisone Cream) 1 applic TOP BID [facility] Enoxaparin Sodium (Lovenox) 40 mg SUBQ DAILY [facility] Potassium Chloride/Dextrose/Sod Cl () 1,000 mls @ 100 mls/hr IV .Q10H [facility] Last Admin: 04/11/18 10:13 Dose: 100 mls/hr Famotidine (Pepcid 20 Mg/50 Ml) 50 mls @ 100 mls/hr IV BID [facility] Last Infusion: 04/11/18 12:05 Dose: Infused Cefuroxime Sodium 1.5 gm/ (Sodium Chloride) 100 mls @ 200 mls/hr IV Q8H [facility] Stop: 04/16/18 15:59 Last Infusion: 04/11/18 16:35 Dose: Infused Metronidazole (Flagyl 500 Mg/100 Ml) 500 mg in 100 mls @ 100 mls/hr IV Q8H [facility] Stop: 04/16/18 15:59 Last Admin: 04/11/18 16:42 Dose: 100 mls/hr Acetaminophen (Ofirmev) 100 mls @ 400 mls/hr IV Q6H [facility] Last Admin: 04/11/18 14:31 Dose: 100 mls Ketorolac Tromethamine (Toradol Inj (15mg)) 15 mg IVP Q8HR PRN PRN Reason: PAIN Stop: 04/16/18 05:42 Last Admin: 04/11/18 06:59 Dose: 15 mg Lorazepam (Ativan) 0.5 mg PO Q6H PRN PRN Reason: Anxiety Morphine Sulfate (Morphine (Carpuject)) 4 mg IVP Q2HR PRN PRN Reason: Pain 8 to 10 Last Admin: 04/11/18 12:02 Dose: 4 mg Ondansetron HCl (Zofran Inj) 4 mg IVP Q6HR PRN PRN Reason: Nausea / Vomiting Pantoprazole Sodium (Protonix) 40 mg IVP QDAC [facility] Prochlorperazine Edisylate (Compazine Inj) 10 mg IVP Q6HR PRN PRN Reason: Nausea / Vomiting Sodium Chloride (Normal Saline Flush 0.9%) 10 ml IVP 0100,0900,1700 KRIS Sodium Chloride (Normal Saline Flush 0.9%) 10 ml IVP PRN PRN PRN Reason: NEEDED PER PROVIDER ORDERS Clotrimazole/Betamethasone Dip [Clotrimazole-Betamethasone Crm] 1 applic TOP BID 04/11/[address] [Voltaren] 75 mg PO BIDWM 04/11/18 Objective - Vital Signs/Intake & Output Reviewed Vital Signs: Yes Vital Signs: Vital Signs x48h Temp Pulse Pulse Resp BP BP Pulse Ox 04/11/18 15:40 37.0 C 80 16 96/55 L 98 04/11/18 15:10 38.0 C H 103 H 20 95/48 L 96 04/11/18 15:00 38 C H 92 12 107/51 L 97 04/11/18 14:51 38 C H 95 14 97/53 L 98 04/11/18 14:45 38 C H 102 H 14 105/58 L 99 04/11/18 14:40 38.4 C H 106 H 12 92/56 L 98 04/11/18 14:36 38.4 C H 94 14 94/55 L 99 04/11/18 14:30 38.2 C H 96 14 94/55 L 99 04/11/18 14:24 38.2 C H 99 14 95/60 99 04/11/18 14:19 38.1 C H 104 H 12 106/54 L 99 04/11/18 14:14 37.2 C 104 H 14 95/51 L 99 04/11/18 14:07 37.2 C 106 H 14 101/53 L 99 Intake & Output: Intake & Output 04/08/18 04/09/18 04/10/18 04/11/18 23:59 23:59 23:59 23:59 Intake Total 4270 Output Total 200 Balance 4070 - Objective General Appearance: positive: No acute distress, Alert. negative: Lethargic Eyes Bilateral: positive: Normal inspection, PERRL, No lid inflammation, Conjunctivae nml ENT: positive: ENT inspection nml, Pharynx nml, No signs of dehydration. negative: Purulent nasal drainage, Pharyngeal erythema, Oral lesions Neck: positive: Nml inspection, Thyroid nml, No JVD, Trachea midline. negative: Thyromegaly, Lymphadenopathy (R), Lymphadenopathy (L), Stiff neck, Swelling/bruising, Tracheal deviation Respiratory: positive: Chest non-tender, No respiratory distress, Breath sounds nml. negative: Wheezes, Rales, Rhonchi Cardiovascular: positive: Regular rate & rhythm, No murmur, No gallop. negative: Irregularly irregular, Extrasystoles, Tachycardia, Bradycardia, JVD present, Systolic murmur, Diastolic murmur Peripheral Pulses: 2+ Radial (R), 2+ Radial (L), 2+ Dorsalis pedis (R), 2+ Dorsalis pedis (L) Abdomen: positive: No organomegaly, Nml bowel sounds, No distention, Tenderness. negative: Guarding, Rebound Back: positive: Nml inspection. negative: CVA tenderness (R), CVA tenderness (L) Skin: positive: Color nml, No rash, Warm, Dry. negative: Cyanosis, Diaphoresis, Pallor Extremities: positive: Non-tender, Full ROM, Nml appearance. negative: Calf tenderness, Joint swelling, King's sign/cords Neurologic/Psychiatric: positive: Oriented x3, Motor nml, Sensation nml, Mood/affect nml. negative: Weakness, Sensory loss, Facial droop, Slurred/abnml speech, Depressed mood/affect - Lab Results Fish Bones: 04/11/18 03:45 04/11/18 03:45 Other Labs: Lab Results x24hrs 04/11/18 04/11/18 04/11/18 Range/Units 05:47 05:12 03:45 WBC (4.8-10.8) x10^3/uL RBC (4.20-5.40) 10^6/uL Hgb (12.0-16.0) g/dL Hct (37.0-47.0) % MCV (81.0-99.0) fL MCH (27.0-31.0) pg MCHC (32.0-36.0) g/dL RDW (12.0-15.0) % Plt Count (130-450) 10^3/uL MPV (7.9-10.8) fL Neut # (Auto) Lymph # (Auto) Bland # (Auto) Eos # (Auto) Baso # (Auto) Absolute Nucleated RBC Total Counted Band Neuts % (Manual) (0 - 10) % Abnorm Lymph % (Manual) % Nucleated RBC % Neutrophils # (Manual) (1.5-6.6) 10^3/uL Lymphocytes # (Manual) (1.5-3.5) 10^3/uL Monocytes # (Manual) (0.0-1.0) 10^3/uL Eosinophils # (Manual) (0-0.7) 10^3/uL Basophils # (Manual) (0-0.1) 10^3/uL Differential Comment Platelet Estimate (NORMAL) RBC Morph Micro Appear (NORMAL) PT 16.8 H (9.9-12.6) secs INR 1.5 H (0.8-1.2) APTT 27.5 (24.9-33.3) secs Sodium (135-145) mmol/L Potassium (3.5-5.0) mmol/L Chloride (101-111) mmol/L Carbon Dioxide (21-32) mmol/L Anion Gap (6-13) BUN (6-20) mg/dL Creatinine (0.4-1.0) mg/dL Estimated GFR (MDRD) (>89) Glucose (70-100) mg/dL Lactic Acid 1.5 (0.5-2.2) mmol/L Calcium (8.5-10.3) mg/dL Total Bilirubin (0.2-1.0) mg/dL AST (10-42) IU/L ALT (10-60) IU/L Alkaline Phosphatase (42-121) IU/L Total Protein (6.7-8.2) g/dL Albumin (3.2-5.5) g/dL Globulin (2.1-4.2) g/dL Albumin/Globulin Ratio (1.0-2.2) Lipase (22-51) U/L Serum HCG, Qual Urine Color YELLOW Urine Clarity CLEAR (CLEAR) Urine pH 6.0 (5.0-7.5) PH Ur Specific Eland <=1.005 (1.002-1.030) Urine Protein NEGATIVE (NEGATIVE) mg/dL Urine Glucose (UA) NEGATIVE (NEGATIVE) mg/dL Urine Ketones NEGATIVE (NEGATIVE) mg/dL Urine Occult Blood NEGATIVE (NEGATIVE) Urine Nitrite NEGATIVE (NEGATIVE) Urine Bilirubin NEGATIVE (NEGATIVE) Urine Urobilinogen 0.2 (NORMAL) (NORMAL) E.U./dL Ur Leukocyte Esterase NEGATIVE (NEGATIVE) Ur Microscopic Review NOT INDICATED Urine Culture Comments NOT INDICATED 04/11/18 04/11/18 04/11/18 Range/Units 03:45 03:45 03:45 WBC 20.2 H (4.8-10.8) x10^3/uL RBC 4.74 (4.20-5.40) 10^6/uL Hgb 14.6 (12.0-16.0) g/dL Hct 44.5 (37.0-47.0) % MCV 93.8 (81.0-99.0) fL MCH 30.8 (27.0-31.0) pg MCHC 32.8 (32.0-36.0) g/dL RDW 14.3 (12.0-15.0) % Plt Count 285 (130-450) 10^3/uL MPV 8.0 (7.9-10.8) fL Neut # (Auto) Not Reportable Lymph # (Auto) Not Reportable Bland # (Auto) Not Reportable Eos # (Auto) Not Reportable Baso # (Auto) Not Reportable Absolute Nucleated RBC Not Reportable Total Counted 100 Band Neuts % (Manual) 12 H (0 - 10) % Abnorm Lymph % (Manual) 0 % Nucleated RBC % Not Reportable Neutrophils # (Manual) 18.2 H (1.5-6.6) 10^3/uL Lymphocytes # (Manual) 1.2 L (1.5-3.5) 10^3/uL Monocytes # (Manual) 0.6 (0.0-1.0) 10^3/uL Eosinophils # (Manual) 0.2 (0-0.7) 10^3/uL Basophils # (Manual) 0.0 (0-0.1) 10^3/uL Differential Comment MANUAL DIFFERENTIAL Platelet Estimate NORMAL (130-450,000) (NORMAL) RBC Morph Micro Appear NORMAL APPEARANCE (NORMAL) PT (9.9-12.6) secs INR (0.8-1.2) APTT (24.9-33.3) secs Sodium 133 L (135-145) mmol/L Potassium 3.5 (3.5-5.0) mmol/L Chloride 102 (101-111) mmol/L Carbon Dioxide 21 (21-32) mmol/L Anion Gap 10.0 (6-13) BUN 8 (6-20) mg/dL Creatinine 0.9 (0.4-1.0) mg/dL Estimated GFR (MDRD) 68 L (>89) Glucose 139 H (70-100) mg/dL Lactic Acid (0.5-2.2) mmol/L Calcium 8.7 (8.5-10.3) mg/dL Total Bilirubin 0.4 (0.2-1.0) mg/dL AST 19 (10-42) IU/L ALT < 10 L (10-60) IU/L Alkaline Phosphatase 57 (42-121) IU/L Total Protein 8.2 (6.7-8.2) g/dL Albumin 3.8 (3.2-5.5) g/dL Globulin 4.4 H (2.1-4.2) g/dL Albumin/Globulin Ratio 0.9 L (1.0-2.2) Lipase 19 L (22-51) U/L Serum HCG, Qual NEGATIVE Urine Color Urine Clarity (CLEAR) Urine pH (5.0-7.5) PH Ur Specific Eland (1.002-1.030) Urine Protein (NEGATIVE) mg/dL Urine Glucose (UA) (NEGATIVE) mg/dL Urine Ketones (NEGATIVE) mg/dL Urine Occult Blood (NEGATIVE) Urine Nitrite (NEGATIVE) Urine Bilirubin (NEGATIVE) Urine Urobilinogen (NORMAL) E.U./dL Ur Leukocyte Esterase (NEGATIVE) Ur Microscopic Review Urine Culture Comments ABX Reporting Has patient been on IV antibiotics over the past 48 hours?: Yes Sepsis Event Note (H) - Evaluation Current Stage of Sepsis: Sepsis Possible source of Sepsis: positive: GI tract/intra-abdominal Assessment/Plan - Problem List (1) Perforated appendicitis Impression: pt will have surgery, will followup continue antibiotics continue pain control continue IVF lab and vital monitor (2) SIRS (systemic inflammatory response syndrome) Impression: pt present lower degree fever, elevated WBC, tachycardia, blood culture is pending continue antibiotics IVF of NS lab and vital monitor, precaution of sepsis (3) Hx of psoriasis Impression: stable, continue home top meds (4) Anxiety Impression: pt has hx of anxiety start Ativan PRN
[2018-04-11] MEDS: SODIUM CHLORIDE FLUSH 0.9% 10 ML SYRINGE IVP SCH (17:13)
[2018-04-11] MEDS: CLOTRIMAZOLE/BETAMETHASONE 45 GM TUBE TOP SCH (20:53)
[2018-04-12] MEDS: metroNIDAZOLE 500 MG/100 ML 500 MG/100 ML BAG IV SCH ×4 (00:31→23:46)
[2018-04-12] MEDS: MORPHINE 2 MG/ML CARPUJECT IVP PRN ×3 (00:34→11:58)
[2018-04-12] MEDS: KETOROLAC 15 MG/ML VIAL IVP PRN ×3 (01:27→17:57)
[2018-04-12] MEDS: SODIUM CHLORIDE FLUSH 0.9% 10 ML SYRINGE IVP SCH ×4 (01:28→23:46)
[2018-04-12] MEDS: CEFUROXIME IV SCH ×4 (01:45→23:56)
[2018-04-12] MEDS: SODIUM CHLORIDE 0.9% IV SCH ×4 (01:45→23:56)
[2018-04-12] MEDS: ACETAMINOPHEN 1,000 MG/100 ML 100 ML IV SCH ×4 (03:29→21:51)
[2018-04-12] MEDS ORDERED: oxyCODONE 5 MG TABLET PO PRN (05:11)
[2018-04-12 05:50] LABS: BASOPHILS % (AUTO) 0.1 %; EOSINOPHILS % (AUTO) 0.1 %; HGB - HEMOGLOBIN 10.3 g/dL (12.0-16.0); LYMPHOCYTES # (AUTO) 0.6 10^3/uL (1.5-3.5); LYMPHOCYTES % (AUTO) 4.2 %; MEAN CORPUSCULAR HEMOGLOBIN 30.8 pg (27.0-31.0); MEAN CORPUSCULAR HGB CONC 32.4 g/dL (32.0-36.0); MEAN CORPUSCULAR VOLUME 95.1 fL (81.0-99.0); MEAN PLATELET VOLUME 8.4 fL (7.9-10.8); MONOCYTES # (AUTO) 0.3 10^3/uL (0.0-1.0); MONOCYTES % (AUTO) 2.4 %; NEUTROPHILS # (AUTO) 13.2 10^3/uL (1.5-6.6); NEUTROPHILS % (AUTO) 93.2 %; PLT - PLATELET COUNT 178 10^3/uL (130-450); RED BLOOD COUNT 3.35 10^6/uL (4.20-5.40); RED CELL DISTRIBUTION WIDTH 14.4 % (12.0-15.0); WHITE BLOOD COUNT 14.1 x10^3/uL (4.8-10.8)
[2018-04-12 05:54] LABS: CALCIUM 7.5 mg/dL (8.5-10.3); CREATININE 0.7 mg/dL (0.4-1.0)
[2018-04-12] MEDS: SODIUM CHLORIDE FLUSH 0.9% 10 ML SYRINGE IVP PRN ×2 (06:36→11:58)
[2018-04-12] MEDS: PANTOPRAZOLE 40 MG VIAL IVP SCH (06:36)
[2018-04-12] MEDS: ENOXAPARIN 40 MG/0.4 ML SYRINGE SUBQ SCH (08:24)
[2018-04-12] MEDS: CLOTRIMAZOLE/BETAMETHASONE 45 GM TUBE TOP SCH ×2 (10:17→21:02)
[2018-04-12] MEDS: FAMOTIDINE 20 MG/50 ML 50 ML IV SCH ×2 (10:17→21:02)
--- NOTE | 2018-04-12 13:45 | PROVIDER PROGRESS NOTE ---
Subjective - Subjective Pt reports feeling: Improved Subjective: pt report her abdominal pain is better controlled. she denies nausea, vomiting. she report she ate about 30% for her breakfast, she tolerate her diet. she denies fever, chill, chest pain, cough, SOB. Current Medications - Current Medications Current Medications: Active Medications Clotrimazole (Lotrisone Cream) 1 applic TOP BID [facility] Last Admin: 04/12/18 10:17 Dose: 1 applic Enoxaparin Sodium (Lovenox) 40 mg SUBQ DAILY [facility] Last Admin: 04/12/18 08:24 Dose: Not Given Famotidine (Pepcid 20 Mg/50 Ml) 50 mls @ 100 mls/hr IV BID [facility] Last Infusion: 04/12/18 10:41 Dose: Infused Cefuroxime Sodium 1.5 gm/ (Sodium Chloride) 100 mls @ 200 mls/hr IV Q8H [facility] Stop: 04/16/18 15:59 Last Infusion: 04/12/18 09:08 Dose: Infused Metronidazole (Flagyl 500 Mg/100 Ml) 500 mg in 100 mls @ 100 mls/hr IV Q8H [facility] Stop: 04/16/18 15:59 Last Infusion: 04/12/18 09:20 Dose: Infused Acetaminophen (Ofirmev) 100 mls @ 400 mls/hr IV Q6H [facility] Last Infusion: 04/12/18 09:56 Dose: Infused Ketorolac Tromethamine (Toradol Inj (15mg)) 15 mg IVP Q8HR PRN PRN Reason: PAIN Stop: 04/16/18 05:42 Last Admin: 04/12/18 09:28 Dose: 15 mg Lorazepam (Ativan) 0.5 mg PO Q6H PRN PRN Reason: Anxiety Morphine Sulfate (Morphine (Carpuject)) 4 mg IVP Q2HR PRN PRN Reason: Pain 8 to 10 Last Admin: 04/12/18 11:58 Dose: 2 mg Ondansetron HCl (Zofran Inj) 4 mg IVP Q6HR PRN PRN Reason: Nausea / Vomiting Oxycodone HCl (Roxicodone) 5 mg PO Q4HR PRN PRN Reason: PAIN Pantoprazole Sodium (Protonix) 40 mg IVP QDAC [facility] Last Admin: 04/12/18 06:36 Dose: 40 mg Prochlorperazine Edisylate (Compazine Inj) 10 mg IVP Q6HR PRN PRN Reason: Nausea / Vomiting Sodium Chloride (Normal Saline Flush 0.9%) 10 ml IVP 0100,0900,1700 KR[facility] Last Admin: 04/12/18 08:25 Dose: 10 ml Sodium Chloride (Normal Saline Flush 0.9%) 10 ml IVP PRN PRN PRN Reason: NEEDED PER PROVIDER ORDERS Last Admin: 04/12/18 11:58 Dose: 10 ml Clotrimazole/Betamethasone Dip [Clotrimazole-Betamethasone Crm] 1 applic TOP BID 04/11/[address] [Voltaren] 75 mg PO BIDWM 04/11/18 Objective - Vital Signs/Intake & Output Reviewed Vital Signs: Yes Vital Signs: Vital Signs x48h Temp Pulse Resp BP Pulse Ox 04/12/18 07:44 36.8 C 84 14 103/53 L 98 Intake & Output: Intake & Output 04/09/18 04/10/18 04/11/18 04/12/18 23:59 23:59 23:59 23:59 Intake Total 5738 2250.000 Output Total 270 20 Balance 5468 2230.000 - Objective General Appearance: positive: No acute distress, Alert. negative: Lethargic Eyes Bilateral: positive: Normal inspection, PERRL, No lid inflammation, Conjunctivae nml ENT: positive: ENT inspection nml, Pharynx nml, No signs of dehydration. negative: Purulent nasal drainage, Pharyngeal erythema, Oral lesions Neck: positive: Nml inspection, Thyroid nml, No JVD, Trachea midline. negative: Thyromegaly, Lymphadenopathy (R), Lymphadenopathy (L), Stiff neck, Swelling/bruising, Tracheal deviation Respiratory: positive: Chest non-tender, No respiratory distress, Breath sounds nml. negative: Wheezes, Rales, Rhonchi Cardiovascular: positive: Regular rate & rhythm, No murmur, No gallop. negative: Irregularly irregular, Extrasystoles, Tachycardia, Bradycardia, JVD present, Systolic murmur, Diastolic murmur Peripheral Pulses: 2+ Radial (R), 2+ Radial (L), 2+ Dorsalis pedis (R), 2+ Dorsalis pedis (L) Abdomen: positive: Non-tender, No organomegaly, Nml bowel sounds, No distention. negative: Tenderness, Guarding, Rebound Back: positive: Nml inspection. negative: CVA tenderness (R), CVA tenderness (L) Skin: positive: Color nml, No rash, Warm, Dry. negative: Cyanosis, Diaphoresis, Pallor Extremities: positive: Non-tender, Full ROM, Nml appearance. negative: Calf tenderness, Joint swelling, King's sign/cords Neurologic/Psychiatric: positive: Oriented x3, Motor nml, Sensation nml, Mood/affect nml. negative: Weakness, Sensory loss, Facial droop, Slurred/abnml speech, Depressed mood/affect - Lab Results Fish Bones: 04/12/18 05:24 04/12/18 05:24 Other Labs: Lab Results x24hrs 04/12/18 04/12/18 Range/Units 05:24 05:24 WBC 14.1 H (4.8-10.8) x10^3/uL RBC 3.35 L (4.20-5.40) 10^6/uL Hgb 10.3 L (12.0-16.0) g/dL Hct 31.9 L (37.0-47.0) % MCV 95.1 (81.0-99.0) fL MCH 30.8 (27.0-31.0) pg MCHC 32.4 (32.0-36.0) g/dL RDW 14.4 (12.0-15.0) % Plt Count 178 (130-450) 10^3/uL MPV 8.4 (7.9-10.8) fL Neut # (Auto) 13.2 H (1.5-6.6) 10^3/uL Lymph # (Auto) 0.6 L (1.5-3.5) 10^3/uL [place] # (Auto) 0.3 (0.0-1.0) 10^3/uL Eos # (Auto) 0.0 (0.0-0.7) 10^3/uL Baso # (Auto) 0.0 (0.0-0.1) 10^3/uL Absolute Nucleated RBC 0.00 x10^3/uL Nucleated RBC % 0.0 /100WBC Sodium 136 (135-145) mmol/L Potassium 3.5 (3.5-5.0) mmol/L Chloride 111 (101-111) mmol/L Carbon Dioxide 20 L (21-32) mmol/L Anion Gap 5.0 L (6-13) BUN 10 (6-20) mg/dL Creatinine 0.7 (0.4-1.0) mg/dL Estimated GFR (MDRD) 91 (>89) Glucose 121 H (70-100) mg/dL Calcium 7.5 L (8.5-10.3) mg/dL ABX Reporting Has patient been on IV antibiotics over the past 48 hours?: Yes Sepsis Event Note (H) - Evaluation Current Stage of Sepsis: Sepsis Possible source of Sepsis: positive: GI tract/intra-abdominal - Sepsis Criteria Sepsis Criteria: Recorded Temperature greater than 38.3C or Less than 36C, Recorded Heart Rate greater than 90 bpm, WBC count greater than 10% bands, WBC count greater than 12,000 or less than 4000 Assessment/Plan - Problem List (1) Perforated appendicitis Impression: 04/12 today is status post of operation day one. pt report she feel better, and pain is much better controlled. she ate 30% her breakfast, and tolerate without N/V continue antibiotics followup surgeon recommendation continue pain control continue lab and vital monitor pt will have surgery, will followup continue antibiotics continue pain control continue IVF lab and vital monitor (2) SIRS (systemic inflammatory response syndrome) Impression: 04/12, no fever, WBC is down, HR and RR are down to normal, stable. pt present lower degree fever, elevated WBC, tachycardia, blood culture is pending continue antibiotics IVF of NS lab and vital monitor, precaution of sepsis (3) Hx of psoriasis Impression: stable, continue home top meds (4) Anxiety Impression: pt has hx of anxiety start Ativan PRN (5) bacteremia pt has positive blood culture with E.coli, blood sensitive study is pending continue antibiotics
[2018-04-12] MEDS ORDERED: MORPHINE 2 MG/ML CARPUJECT IVP PRN (14:30)
--- NOTE | 2018-04-13 01:33 | PROVIDER PROGRESS NOTE ---
Subjective - General Admit Date: 04/11/18 Procedure Date: 04/11/18 Post Op Days: 2 Procedure Performed: Laparoscopic appendectomy, placement of drain - Review of Systems Wound/Incisions: positive: Healing well General: positive: No symptoms (Apetite was not what it should be. Patient had a bowel movement.) HEENT: positive: No symptoms Pulmonary: positive: No symptoms Cardiovascular: positive: No symptoms Gastrointestinal: positive: Abdominal pain (Markedly less.) Psychiatric: positive: No symptoms Objective - Patient Data Reviewed Vital Signs: Yes Vital Signs: Vital Signs x48h Temp Pulse Resp BP Pulse Ox 04/12/18 23:13 36.9 C 76 16 108/51 L 98 Weight: Weight 04/11/18 04/12/18 04/13/18 23:59 23:59 23:59 Weight (kg) 56 kg Intake & Output: Intake and Output Totals x24h 04/11/18 04/12/18 04/13/18 23:59 23:59 23:59 Intake Total 5738 3000.000 200 Output Total 270 60 30 Balance 5468 2940.000 170 - Lab Results Lab Results: 04/12/18 05:24 04/12/18 05:24 Other Lab Results: Lab Results x24hrs 04/12/18 04/12/18 Range/Units 05:24 05:24 WBC 14.1 H (4.8-10.8) x10^3/uL RBC 3.35 L (4.20-5.40) 10^6/uL Hgb 10.3 L (12.0-16.0) g/dL Hct 31.9 L (37.0-47.0) % MCV 95.1 (81.0-99.0) fL MCH 30.8 (27.0-31.0) pg MCHC 32.4 (32.0-36.0) g/dL RDW 14.4 (12.0-15.0) % Plt Count 178 (130-450) 10^3/uL MPV 8.4 (7.9-10.8) fL Neut # (Auto) 13.2 H (1.5-6.6) 10^3/uL Lymph # (Auto) 0.6 L (1.5-3.5) 10^3/uL [place] # (Auto) 0.3 (0.0-1.0) 10^3/uL Eos # (Auto) 0.0 (0.0-0.7) 10^3/uL Baso # (Auto) 0.0 (0.0-0.1) 10^3/uL Absolute Nucleated RBC 0.00 x10^3/uL Nucleated RBC % 0.0 /100WBC Sodium 136 (135-145) mmol/L Potassium 3.5 (3.5-5.0) mmol/L Chloride 111 (101-111) mmol/L Carbon Dioxide 20 L (21-32) mmol/L Anion Gap 5.0 L (6-13) BUN 10 (6-20) mg/dL Creatinine 0.7 (0.4-1.0) mg/dL Estimated GFR (MDRD) 91 (>89) Glucose 121 H (70-100) mg/dL Calcium 7.5 L (8.5-10.3) mg/dL - Current Medications Current Medications: Current Medications Generic Name Dose Route Start Last Admin Trade Name Freq PRN Reason Stop Dose Admin Clotrimazole 1 applic 04/11/18 21:00 04/12/18 21:02 Lotrisone Cream TOP 1 applic BID [facility] Administration Enoxaparin Sodium 40 mg 04/12/18 09:00 04/12/18 08:24 Lovenox SUBQ Not Given DAILY [facility] Famotidine 50 mls @ 100 mls/hr 04/11/18 09:00 04/12/18 21:32 Pepcid 20 Mg/50 Ml IV Infused BID [facility] Infusion Cefuroxime Sodium 1.5 gm/ 100 mls @ 200 mls/hr 04/11/18 16:00 04/13/18 00:26 Sodium Chloride IV 04/16/18 15:59 Infused Q8H [facility] Infusion Metronidazole 500 mg in 100 mls @ 100 mls/hr 04/11/18 16:00 04/13/18 00:46 Flagyl 500 Mg/100 Ml IV 04/16/18 15:59 Infused Q8H [facility] Infusion Acetaminophen 100 mls @ 400 mls/hr 04/11/18 15:00 04/12/18 22:14 Ofirmev IV Infused Q6H [facility] Infusion Ketorolac Tromethamine 15 mg 04/11/18 05:43 04/12/18 17:57 Toradol Inj (15mg) IVP 04/16/18 05:42 15 mg Q8HR PRN Administration PAIN Oxycodone HCl 5 mg 04/12/18 05:11 04/12/18 19:05 Roxicodone PO 5 mg Q4HR PRN Administration PAIN Pantoprazole Sodium 40 mg 04/12/18 07:00 04/12/18 06:36 Protonix IVP 40 mg QDAC [facility] Administration Sodium Chloride 10 ml 04/11/18 17:00 04/12/18 23:46 Normal Saline Flush 0.9% IVP 10 ml 0100,0900,1700 KRIS Administration Sodium Chloride 10 ml 04/11/18 14:06 04/12/18 11:58 Normal Saline Flush 0.9% IVP 10 ml PRN PRN Administration NEEDED PER PROVIDER ORDERS - Physical Exam Wound/Incisions: positive: Healing well, Other (Drain mostly serous with some residual turbidity.) General Appearance: positive: No acute distress Eyes Bilateral: positive: No lid inflammation, Conjunctivae nml, No scleral icterus ENT: positive: Dry mucous membranes Neck: positive: Trachea midline Respiratory: positive: Chest non-tender, No respiratory distress, Breath sounds nml Cardiovascular: positive: Regular rate & rhythm Abdomen: positive: Nml bowel sounds, Tenderness (Incisional.) Skin: positive: Color nml Extremities: positive: Non-tender, Nml appearance Neurologic/Psychiatric: positive: Oriented x3 ABX Reporting Has patient been on IV antibiotics over the past 48 hours?: Yes Impression/Plan - Problem List Problem List: D1 s/p laparoscopic appendectomy with placement of drain for perforated appendicitis with pus in abdomen. 1) FEN Continue general diet as tolerated. 2) ID Patient at risk for infection and currently on Ceftin and Flagyl. Continue. Switch to oral on Monday if WBC normalizing and no fever or increased abdominal pian. 3) Activity Patient encouraged to walk as much as possible. Okay to shower. Incentive spirometry.
[2018-04-13] MEDS: ACETAMINOPHEN 1,000 MG/100 ML 100 ML IV SCH ×2 (03:01→08:52)
[2018-04-13] MEDS: SODIUM CHLORIDE FLUSH 0.9% 10 ML SYRINGE IVP PRN ×2 (03:32→06:55)
[2018-04-13 05:49] LABS: BASOPHILS % (AUTO) 0.2 %; EOSINOPHILS # (AUTO) 0.1 10^3/uL (0.0-0.7); EOSINOPHILS % (AUTO) 1.1 %; HGB - HEMOGLOBIN 10.5 g/dL (12.0-16.0); LYMPHOCYTES # (AUTO) 0.5 10^3/uL (1.5-3.5); LYMPHOCYTES % (AUTO) 5.6 %; MEAN CORPUSCULAR HEMOGLOBIN 31.5 pg (27.0-31.0); MEAN CORPUSCULAR VOLUME 95.4 fL (81.0-99.0); MEAN PLATELET VOLUME 8.7 fL (7.9-10.8); MONOCYTES # (AUTO) 0.2 10^3/uL (0.0-1.0); MONOCYTES % (AUTO) 2.4 %; NEUTROPHILS # (AUTO) 8.6 10^3/uL (1.5-6.6); NEUTROPHILS % (AUTO) 90.7 %; PLT - PLATELET COUNT 173 10^3/uL (130-450); RED BLOOD COUNT 3.32 10^6/uL (4.20-5.40); RED CELL DISTRIBUTION WIDTH 14.4 % (12.0-15.0); WHITE BLOOD COUNT 9.4 x10^3/uL (4.8-10.8)
[2018-04-13] MEDS: PANTOPRAZOLE 40 MG VIAL IVP SCH (06:55)
[2018-04-13 07:40] VITALS: BP 116/81
[2018-04-13] MEDS: KETOROLAC 15 MG/ML VIAL IVP PRN (07:40)
[2018-04-13] MEDS ORDERED: SODIUM CHLORIDE 0.9% 500 ML IV ONE (08:02)
[2018-04-13] MEDS: SODIUM CHLORIDE FLUSH 0.9% 10 ML SYRINGE IVP SCH (08:07)
[2018-04-13] MEDS: CEFUROXIME IV SCH (08:09)
[2018-04-13] MEDS: SODIUM CHLORIDE 0.9% IV SCH (08:09)
[2018-04-13 08:29] LABS: ALBUMIN 2.2 g/dL (3.2-5.5); ALBUMIN/GLOBULIN RATIO 0.7 (1.0-2.2); ALKALINE PHOSPHATASE 53 IU/L (42-121); ALT ALANINE AMINOTRANSFERASE < 10 IU/L (10-60); AST ASPARTATE AMINOTRANSFERASE 14 IU/L (10-42); BILIRUBIN,TOTAL 0.4 mg/dL (0.2-1.0); BUN - BLOOD UREA NITROGEN 10 mg/dL (6-20); CALCIUM 7.5 mg/dL (8.5-10.3); CARBON DIOXIDE - CO2 20 mmol/L (21-32); CHLORIDE 112 mmol/L (101-111); CREATININE 0.6 mg/dL (0.4-1.0); GFR - MDRD 109 (>89); GLUCOSE 96 mg/dL (70-100); SODIUM 136 mmol/L (135-145); TOTAL PROTEIN 5.2 g/dL (6.7-8.2)
[2018-04-13] MEDS: CLOTRIMAZOLE/BETAMETHASONE 45 GM TUBE TOP SCH (08:55)
[2018-04-13] MEDS ORDERED: POTASSIUM CHLORIDE 20 MEQ TABLET PO ONE (09:02)
[2018-04-13] MEDS: metroNIDAZOLE 500 MG/100 ML 500 MG/100 ML BAG IV SCH (09:22)
[2018-04-13] MEDS ORDERED: CEFEPIME 2 GM in SODIUM CHLORIDE 0.9% MINIBAG 100 ML IV SCH (10:00)
[2018-04-13] MEDS: ENOXAPARIN 40 MG/0.4 ML SYRINGE SUBQ SCH (10:45)
[2018-04-13] MEDS: FAMOTIDINE 20 MG/50 ML 50 ML IV SCH (11:21)
--- NOTE | 2018-04-13 11:33 | DISCHARGE SUMMARY ---
"Discharge Summary Admit Date: 04/11/18 Discharge Date: 04/13/18 Discharging Provider: Jh Code Status: Attempt Resuscitation Condition at Discharge: Good Discharge Disposition: 01 Home, Self Care - DIAGNOSES Admission Diagnoses: Acute perforated appendicitis Discharge Diagnoses with Status of Each Condition: Resolved - HPI History of Present Illness: 43 year old female with less than 48 hour history of worsening and localizing abdominal pain. Positive aneorexia, nausea, vomiting. Peritoneal exam. CT con firmation. - CONSULTS | PROCEDURES Consultations: Jh Procedures: Laparoscopic appendectomy with placement of drain 04/11/2018 (Jh) - HOSPITAL COURSE Hospital Course: Admitted due to perforation and purulence in abdomen following surgery for IV antibiotics.. - ALLERGIES Allergies/Adverse Reactions: Allergies Allergy/AdvReac Type Severity Reaction Status Date / Time codeine [Codeine] Allergy Mild Hives Verified 04/11/18 03:51 erythromycin base Allergy Edema Verified 04/11/18 03:51 cillins Allergy Intermediate Edema Uncoded 04/11/18 03:51 oranges AdvReac Intermediate Nausea Uncoded 04/11/18 03:51 - MEDICATIONS Home Medications: Ambulatory Orders Medication Instructions Recorded Confirmed Clotrimazole/Betamethasone Dip 1 applic TOP BID 04/11/18 04/11/18 [Clotrimazole-Betamethasone Crm] Diclofenac Sodium Dr [Voltaren] 75 mg PO BIDWM 04/11/18 04/11/18 Home Medications Other | Comments: Patient is to be sent home with Bactrim and Flagyl. - PHYSICAL EXAM AT DISCHARGE General Appearance: positive: No acute distress Eyes Bilateral: positive: No lid inflammation, Conjunctivae nml, No scleral icterus ENT: positive: No signs of dehydration Neck: positive: Trachea midline Respiratory: positive: Chest non-tender, No respiratory distress, Breath sounds nml Cardiovascular: positive: Regular rate & rhythm Abdomen: positive: Nml bowel sounds, Other (Incisions without erythema, ecchymosis, or drainage. Well approximated. Dermabond in place.) Rectal: positive: Tenderness (Incisional.) Skin: positive: Color nml Extremities: positive: Non-tender, Full ROM, Nml appearance Neurologic/Psychiatric: positive: Oriented x3 - LABS Result Diagrams: 04/13/18 05:25 04/13/18 05:44 - SEPSIS Current Stage of Sepsis: Resolved Possible source of Sepsis: GI tract/intra-abdominal Sepsis Criteria: Recorded Temperature greater than 38.3C or Less than 36C, Recorded Heart Rate greater than 90 bpm, WBC count greater than 10% bands, WBC count greater than 12,000 or less than 4000 - FOLLOW UP Follow Up: [facility] in 7-10 days - TIME SPENT Time Spent in Discharge (Minutes): 45"
--- NOTE | 2018-04-13 11:48 | Discharge Plan ---
Discharge Plan Disposition: Home, Self Care Condition: Good Prescriptions: Ketorolac [Toradol] 10 mg PO Q6H 5 Days #20 tablet metroNIDAZOLE [Flagyl] 250 mg PO Q6H 7 Days #28 tablet Sulfamethox/Trimeth 800/160 [Bactrim Ds 800/160] 1 each PO BID #14 tablet Diet: Regular Activity Restrictions: No work until cleared in office. No lifting >15 pounds x 6 weeks. Shower Restrictions: No Driving Restrictions: Yes Weight Bearing: Full Weight No Smoking: If you smoke, Please STOP! Call for help. Follow-up with: Zhao Peñaloza MD [Provider Admit Priv/Credential] -
== END 2018-04-13 13:05 | disposition home or self-care (01) | DRG 853 ==
LOC: ED 03:33 → MS2 05:38
PROVIDERS: ADMIT Internal Medicine; ATTEND Nurse Practitioner Gerontology
PROC: 0W9G40Z Drainage of Peritoneal Cavity with Drainage Device, Percutaneous Endoscopic Approach (ICD-10-PCS; 2018-04-11)
PROC: 0DTJ4ZZ Resection of Appendix, Percutaneous Endoscopic Approach (ICD-10-PCS; principal; 2018-04-11 12:15)
DX: A41.9 Sepsis, unspecified organism (principal); K35.32 Acute appendicitis with perforation, localized peritonitis, and gangrene, without abscess; E87.1 Hypo-osmolality and hyponatremia; F17.210 Nicotine dependence, cigarettes, uncomplicated; L40.9 Psoriasis, unspecified; F41.9 Anxiety disorder, unspecified
CPT/HCPCS: 36415; 74177; 80048; 80053; 81001; 81003; 83605; 83690; 84703; 85025; 85610; 85730; 87040; 87086; 87181; 93005; 96361; 96365; 96375; 99284

== ENCOUNTER 2018-04-14 12:51 | Inpatient (IN) | payer MEDICAID ==
[2018-04-14] MEDS ORDERED: SODIUM CHLORIDE 0.9% 1,000 ML IV ONE (13:41)
--- NOTE | 2018-04-14 13:44 | ED Physician Documentation ---
History of Present Illness - Stated complaint Stated Complaint: HEAD PRESSURE/BLOODY NOSE - Chief complaint Chief Complaint: Neuro - History obtained from History obtained from: Patient, Family () - History of Present Illness Timing: Today (This is a 43-year-old woman who was released from the hospital Monday after stay for perforated appendicitis. She had a drain in the right lower quadrant there was prior to discharge. She has multiple complaints including everything tastes sour and she is not eating because of it. She has liquid diarrhea and bilateral head pressure and nosebleeds and feels very bloated today with increased lower abdominal pain.) Review of Systems Ten Systems: 10 systems reviewed and negative Constitutional: denies: Fever, Chills Throat: denies: Dental pain / toothache Cardiac: denies: Chest pain / pressure, Palpitations Respiratory: denies: Dyspnea, Cough PD PAST MEDICAL HISTORY - Past Medical History Cardiovascular: None Respiratory: None Neuro: None Endocrine/Autoimmune: None GI: None TOP H[employer] B[employer]ER: None : None HEENT: None Psych: Anxiety Musculoskeletal: None Derm: None - Past Surgical History Past Surgical History: No - Present Medications Home Medications: Ambulatory Orders Medication Instructions Recorded Confirmed Clotrimazole/Betamethasone Dip 1 applic TOP BID 04/11/18 04/11/18 [Clotrimazole-Betamethasone Crm] Ketorolac [Toradol] 10 mg PO Q6H 5 Days #20 tablet 04/13/18 Sulfamethox/Trimeth 800/160 1 each PO BID #14 tablet 04/13/18 [Bactrim Ds 800/160] metroNIDAZOLE [Flagyl] 250 mg PO Q6H 7 Days #28 tablet 04/13/18 - Allergies Allergies/Adverse Reactions: Allergies Allergy/AdvReac Type Severity Reaction Status Date / Time codeine [Codeine] Allergy Mild Hives Verified 04/14/18 13:17 erythromycin base Allergy Edema Verified 04/14/18 13:17 cillins Allergy Intermediate Edema Uncoded 04/14/18 13:17 oranges AdvReac Intermediate Nausea Uncoded 04/14/18 13:17 - Social History Does the pt smoke?: Yes Smoking Status: Current every day smoker Does the pt drink ETOH?: Yes Does the pt have substance abuse?: No - Immunizations Immunizations are current?: Yes - POLST Patient has POLST: No PD ED PE NORMAL - Vitals Vital signs reviewed: Yes - General General: Alert and oriented X 3, No acute distress - HEENT HEENT: PERRL, EOMI, Pharynx benign, Other (No active nosebleed and I do not see any specific spot that was bleeding) - Neck Neck: Supple, no meningeal sign, No bony TTP - Cardiac Cardiac: RRR, No murmur - Respiratory Respiratory: No respiratory distress, Clear bilaterally - Abdomen Abdomen: Other (The WARREN drain site in the right lower quadrant has minimal thin drainage. She says she is changing the dressing several times a day though because it is becoming wet with drainage. She does have moderate lower abdominal tenderness without surgical signs. The other surgical sites look fine. She does have diminished bowel tones.) - Back Back: No CVA TTP, No spinal TTP - Derm Derm: Normal color, Warm and dry - Extremities Extremities: No edema, No calf tenderness / cord - Neuro Neuro: Alert and oriented X 3, Normal speech - Psych Psych: Normal mood, Normal affect Results - Vitals Vitals: Vital Signs - 24 hr 04/14/18 13:14 Temperature 37.1 C Heart Rate 102 H Respiratory 15 Rate Blood Pressure 149/86 H O2 Saturation 98 Oxygen O2 Source Room air - Labs Labs: Laboratory Tests 04/14/18 04/14/18 04/14/18 14:10 14:10 14:10 WBC 7.9 RBC 3.82 L Hgb 11.9 L Hct 35.4 L MCV 92.7 MCH 31.1 H MCHC 33.6 RDW 14.4 Plt Count 252 MPV 8.3 Neut # (Auto) 6.4 Lymph # (Auto) 0.8 L [place] # (Auto) 0.6 Eos # (Auto) 0.0 Baso # (Auto) 0.0 Absolute Nucleated RBC 0.00 Nucleated RBC % 0.0 PT 15.6 H INR 1.4 H Sodium 137 Potassium 3.3 L Chloride 110 Carbon Dioxide 17 L Anion Gap 10.0 BUN 7 Creatinine 0.5 Estimated GFR (MDRD) 135 Glucose 88 Calcium 8.3 L Total Bilirubin 0.7 AST 13 ALT < 10 L Alkaline Phosphatase 79 Total Protein 6.5 L Albumin 2.5 L Globulin 4.0 Albumin/Globulin Ratio 0.6 L Lipase 83 H Urine Color Urine Clarity Urine pH Ur Specific [place] Urine Protein Urine Glucose (UA) Urine Ketones Urine Occult Blood Urine Nitrite Urine Bilirubin Urine Urobilinogen Ur Leukocyte Esterase Urine RBC Urine WBC Ur Squamous Epith Cells Urine Bacteria Ur Microscopic Review Urine Culture Comments Urine HCG, Qual 04/14/18 15:15 WBC RBC Hgb Hct MCV MCH MCHC RDW Plt Count MPV Neut # (Auto) Lymph # (Auto) [place] # (Auto) Eos # (Auto) Baso # (Auto) Absolute Nucleated RBC Nucleated RBC % PT INR Sodium Potassium Chloride Carbon Dioxide Anion Gap BUN Creatinine Estimated GFR (MDRD) Glucose Calcium Total Bilirubin AST ALT Alkaline Phosphatase Total Protein Albumin Globulin Albumin/Globulin Ratio Lipase Urine Color YELLOW Urine Clarity CLEAR Urine pH 6.0 Ur Specific [place] >=1.030 H Urine Protein NEGATIVE Urine Glucose (UA) NEGATIVE Urine Ketones >=80 H Urine Occult Blood MODERATE H Urine Nitrite NEGATIVE Urine Bilirubin NEGATIVE Urine Urobilinogen 0.2 (NORMAL) Ur Leukocyte Esterase NEGATIVE Urine RBC 11-25 H Urine WBC 0-3 Ur Squamous Epith Cells RARE Squamous Urine Bacteria None Seen Ur Microscopic Review INDICATED Urine Culture Comments NOT INDICATED Urine HCG, Qual NEGATIVE - Rads (name of study) CT A/P Radiology: EMP read contemporaneously (Explicable pneumoperitoneum with worsening pelvic fluid collection and mesenteric edema) PD MEDICAL DECISION MAKING - ED course ED course: 43-year-old woman after discharge yesterday for perforated appendicitis presents with abdominal pelvic bloating and pain. Her other symptoms probably can be explained by side effects to Flagyl. She is pretty dehydrated with low bicarb and very concentrated urine and on CT it looks like she may be developing a pelvic abscess. I spoke with Dr Peñaloza at 4:27 PM who will be in to admit her. He agrees on cefepime after discussion. He does not need blood cultures. Departure - Departure Disposition: 66 [facility] DC/Xfer Clinical Impression: Perforated appendicitis, Phlegmon Condition: Stable
[2018-04-14] MEDS ORDERED: IOVERSOL 320 50 ML VIAL ONE ×2 (14:09→14:46)
[2018-04-14] MEDS ORDERED: IOVERSOL 320 100 ML VIAL IVP ONE ×2 (14:09→17:10)
[2018-04-14 14:27] LABS: BASOPHILS % (AUTO) 0.2 %; EOSINOPHILS % (AUTO) 0.6 %; HGB - HEMOGLOBIN 11.9 g/dL (12.0-16.0); LYMPHOCYTES # (AUTO) 0.8 10^3/uL (1.5-3.5); LYMPHOCYTES % (AUTO) 9.8 %; MEAN CORPUSCULAR HEMOGLOBIN 31.1 pg (27.0-31.0); MEAN CORPUSCULAR HGB CONC 33.6 g/dL (32.0-36.0); MEAN CORPUSCULAR VOLUME 92.7 fL (81.0-99.0); MEAN PLATELET VOLUME 8.3 fL (7.9-10.8); MONOCYTES # (AUTO) 0.6 10^3/uL (0.0-1.0); MONOCYTES % (AUTO) 7.5 %; NEUTROPHILS # (AUTO) 6.4 10^3/uL (1.5-6.6); NEUTROPHILS % (AUTO) 81.9 %; PLT - PLATELET COUNT 252 10^3/uL (130-450); RED BLOOD COUNT 3.82 10^6/uL (4.20-5.40); RED CELL DISTRIBUTION WIDTH 14.4 % (12.0-15.0); WHITE BLOOD COUNT 7.9 x10^3/uL (4.8-10.8)
[2018-04-14 14:38] LABS: ALBUMIN 2.5 g/dL (3.2-5.5); ALBUMIN/GLOBULIN RATIO 0.6 (1.0-2.2); ALKALINE PHOSPHATASE 79 IU/L (42-121); ALT ALANINE AMINOTRANSFERASE < 10 IU/L (10-60); AST ASPARTATE AMINOTRANSFERASE 13 IU/L (10-42); BILIRUBIN,TOTAL 0.7 mg/dL (0.2-1.0); BUN - BLOOD UREA NITROGEN 7 mg/dL (6-20); CALCIUM 8.3 mg/dL (8.5-10.3); CARBON DIOXIDE - CO2 17 mmol/L (21-32); CHLORIDE 110 mmol/L (101-111); CREATININE 0.5 mg/dL (0.4-1.0); GFR - MDRD 135 (>89); GLUCOSE 88 mg/dL (70-100); LIPASE 83 U/L (22-51); SODIUM 137 mmol/L (135-145); TOTAL PROTEIN 6.5 g/dL (6.7-8.2)
[2018-04-14 14:48] LABS: INR 1.4 (0.8-1.2); PT - PROTHROMBIN TIME 15.6 secs (9.9-12.6)
[2018-04-14 15:34] LABS: BILIRUBIN,URINE NEGATIVE (NEGATIVE); GLUCOSE, URINE (UA) NEGATIVE (NEGATIVE); KETONES,URINE (UA) >=80 mg/dL (NEGATIVE); LEUKOCYTE ESTERASE, URINE NEGATIVE (NEGATIVE); NITRITE,URINE NEGATIVE (NEGATIVE); OCCULT BLOOD,URINE MODERATE (NEGATIVE); PROTEIN,URINE NEGATIVE (NEGATIVE); UROBILINOGEN,URINE 0.2 (NORMAL) E.U./dL (NORMAL)
[2018-04-14 15:36] LABS: CLARITY,URINE CLEAR (CLEAR)
[2018-04-14 15:37] LABS: HCG UR QUAL NEGATIVE
[2018-04-14] MEDS ORDERED: LACTATED RINGERS 1,000 ML IV STA (15:44)
[2018-04-14 15:45] LABS: SQUAMOUS EPITHELIAL CELL,UR RARE Squamous (<= Few)
[2018-04-14 15:46] LABS: BACTERIA,URINE None Seen /HPF (None Seen)
--- NOTE | 2018-04-14 16:20 | CT Report ---
Reason: IV and PO, low abd pain and bloating p appy Procedure Date: 04/14/2018 Accession Number: [id number] / [id number] Procedure: CT - Abdomen/Pelvis W/ CPT Code: FULL RESULT: EXAM: CT ABDOMEN AND PELVIS EXAM DATE: 04/14/2018 03:54 PM. CLINICAL HISTORY: Lower abd pain and bloating post appy. COMPARISONS: 04/11/2018. TECHNIQUE: Routine helical CT imaging was performed through the abdomen and pelvis. IV contrast: OPTI 320 80mL. Enteric contrast: Positive. Reconstructions: Coronal and sagittal. In accordance with CT protocol optimization, one or more of the following dose reduction techniques were utilized for this exam: automated exposure control, adjustment of mA and/or KV based on patient size, or use of iterative reconstructive technique. FINDINGS: Lung Bases: Small bilateral pleural effusions and bibasilar atelectasis. Included portions of the heart are unremarkable. Liver: Low attenuation lesion in the left hepatic lobe, stable. Gallbladder/Bile Ducts: Unremarkable. Spleen: Normal. Pancreas: Normal. Adrenal Glands: Normal. Kidneys: Left renal low-attenuation lesion again seen. No hydronephrosis. No nephrolithiasis. Peritoneal Cavity/Bowel: Scattered pneumoperitoneum seen. Stomach is mildly distended and unremarkable. Small bowel dilatation noted containing contrast. Contrast present to the proximal colon. Fluid present within the colon. Diverticuli seen in the distal colon. There is mesenteric edema largely in the mid lower abdomen and pelvis. Appendix is absent. Pelvic Organs: Marked edema seen in the pelvis. There is peritoneal enhancement seen in the pelvis with fluid in the pelvis, as before measuring in overall extent 7.5 x 4.8 x 4.1 cm. Overall extent is slightly larger compared to 04/11/2018 although the edema and enhancement of the peritoneum tracking along the adnexa and throughout the pelvis is now present. The fluid is not completely contained except along its inferior and lateral aspect although not cephalad. Urinary bladder is unremarkable and mild to moderately distended. Vasculature: No aneurysms or other significant abnormality. Bones: Mild degenerative changes. No acute osseous abnormality is. Other: Subcutaneous edema. Scattered foci of air/gas tracking in the subcutaneous tissues and along the anterior inferior chest wall. IMPRESSION: 1. Status post appendectomy. 2. Pelvic fluid collection slightly larger now with more significant surrounding peritoneal enhancement compared to 04/11/2018 and not completely contained by enhancing wall although may represent developing abscess. Enhancement can also be seen postoperatively. 3. Multifocal pneumoperitoneum likely due to recent surgical intervention. 4. Mesenteric edema in the mid lower abdomen and throughout the pelvis. RADIA
[2018-04-14] MEDS ORDERED: CEFEPIME 2 GM in SODIUM CHLORIDE 0.9% MINIBAG 100 ML IV STA (16:26)
[2018-04-14] MEDS ORDERED: ONDANSETRON 4 MG/2 ML VIAL IVP PRN (16:50)
--- NOTE | 2018-04-14 17:11 | SURGERY HX AND PHYSICAL(T) ---
Surgical History & Physical - Chief Complaint/HPI Chief Complaint: Unable to tolerate PO at home following discharge from [facility] for perforated History of Present Illness: This 43 year old female is well known to me as I operated on her for perforated appendicitis this past Monday and discharged her just yesterday on oral antibiotics. Yesterday she was tolerating a diet although she did state that food tasted "funny." While at home she has been unable to tolerate any po intake including food, fluids and her antibiotics. Food and even water taste "funny." Her urine is the color of cola and she was complaining of a splitting headache. She has not had any fever or chills. There has been some slight drainage from where the drain was. I pulled it yesterday as nothing was coming out. Her bowel movements have been watery. - PMH/PSH/Social Hx Does the pt have a hx of MRSA?: No Neurological History: None Eyes, Ears, Nose, Throat: None Cardiovascular: None Respiratory: None Skin: None Endocrine/Autoimmune: None Gastrointestinal: None PAYMENT REP: None Is Patient ?: No Urinary: None Musculoskeletal: None Blood Disorders: None Psychiatric: Anxiety General: Appendectomy Smoking Status: Current every day smoker Does the pt drink ETOH?: Yes Frequency: Weekly Does the pt have substance abuse?: No - Home Meds and Allergies Home Medications: Clotrimazole/Betamethasone Dip [Clotrimazole-Betamethasone Crm] 1 applic TOP BID 04/11/18 Allergies/Adverse Reactions: Allergies Allergy/AdvReac Type Severity Reaction Status Date / Time codeine [Codeine] Allergy Mild Hives Verified 04/14/18 13:17 erythromycin base Allergy Edema Verified 04/14/18 13:17 cillins Allergy Intermediate Edema Uncoded 04/14/18 13:17 oranges AdvReac Intermediate Nausea Uncoded 04/14/18 13:17 - Review of Systems Constitutional: Malaise. No: Fatigue, Fever, Chills HEENT: Headaches. No: Eye pain Skin: No: Cyanosis, Jaundice, Mottled, Pallor, Diaphoresis Cardiac: No: AFIB Respiratory: No: Shortness of breath Gastrointestinal: Diarrhea. No: Difficulty swallowing, Abdominal pain Gentinourinary: No: Dysuria - Vital Signs Heart Rate: 102 Blood Pressure: 149/86 Temperature: 37.1 C Respiratory Rate: 15 O2 Saturation: 98 Weight (kg): 56.699 kg Height: 1.5 m - Physical Exam General Appearance: positive: No acute distress Eyes Bilatera: positive: No lid inflammation, Conjunctivae nml ENT: positive: Dry mucous membranes Neck: positive: Trachea midline Respiratory: positive: Chest non-tender, No respiratory distress, Breath sounds nml Cardiovascular: positive: Regular rate & rhythm Abdomen: positive: Non-tender, Nml bowel sounds, No distention. negative: Guarding, Rebound, Hepatomegaly, Splenomegaly Skin: positive: Color nml Extremities: positive: Non-tender, Full ROM, Nml appearance Neurologic/Psychiatric: positive: Oriented x3 - Patient Review Patient Review: Problems were reviewed with the patient during this visit. Medications were reviewed with the patient during this visit. Allergies were reviewed this patient during this visit. Pertinent Tests Reviewed: All pertitent test for this patient were reviewed. - Assessment & Plan Assessment and Plan: The CT scan was reviewed and the fluid mentioned is likely the irrigation that I used during the operation. It was not coming out yesterday hence the removal of the drain. The patient is clearly at risk of an infection and the fact that she cannot tolerate po intake, including her antibiotics and fluids, mandates her admission to the hospital for IVF and antibiotics. Her E coli was resistant to many antibiotics hence the choice of Cefepime. With a normal WBC, no fever, and a normal abdominal examination I do not think that she has an active abdominal infection but we will continue her antibiotics and perform serial examinations with labs. I have ordered stool cultures in the off chance that she has Clostridium difficile (very unlikely as the patient had been prescribed oral Metronidazole).
[2018-04-14] MEDS: SODIUM CHLORIDE FLUSH 0.9% 10 ML SYRINGE IVP SCH (18:09)
[2018-04-14] MEDS: D5NS W/20 MEQ KCL 1,000 ML IV SCH (18:09)
[2018-04-14] MEDS: ACETAMINOPHEN 1,000 MG/100 ML 100 ML IV SCH (18:09)
[2018-04-14] MEDS: metroNIDAZOLE 500 MG/100 ML 250 MG/50 ML BAG IV SCH (18:58)
[2018-04-15] MEDS: ACETAMINOPHEN 1,000 MG/100 ML 100 ML IV SCH ×4 (00:30→18:10)
[2018-04-15] MEDS: metroNIDAZOLE 500 MG/100 ML 250 MG/50 ML BAG IV SCH ×3 (01:00→18:33)
[2018-04-15] MEDS: SODIUM CHLORIDE FLUSH 0.9% 10 ML SYRINGE IVP SCH ×3 (01:02→16:53)
[2018-04-15] MEDS: CEFEPIME 1 GM in SODIUM CHLORIDE 0.9% MINIBAG 100 ML IV SCH ×2 (03:31→15:47)
[2018-04-15] MEDS: D5NS W/20 MEQ KCL 1,000 ML IV SCH ×4 (03:31→22:21)
[2018-04-15 05:05] LABS: BASOPHILS % (AUTO) 0.4 %; EOSINOPHILS # (AUTO) 0.2 10^3/uL (0.0-0.7); EOSINOPHILS % (AUTO) 3.7 %; HGB - HEMOGLOBIN 10.1 g/dL (12.0-16.0); LYMPHOCYTES # (AUTO) 0.8 10^3/uL (1.5-3.5); LYMPHOCYTES % (AUTO) 15.1 %; MEAN CORPUSCULAR HGB CONC 32.8 g/dL (32.0-36.0); MEAN CORPUSCULAR VOLUME 94.4 fL (81.0-99.0); MEAN PLATELET VOLUME 8.2 fL (7.9-10.8); MONOCYTES # (AUTO) 0.6 10^3/uL (0.0-1.0); MONOCYTES % (AUTO) 10.3 %; NEUTROPHILS # (AUTO) 3.8 10^3/uL (1.5-6.6); NEUTROPHILS % (AUTO) 70.5 %; PLT - PLATELET COUNT 223 10^3/uL (130-450); RED BLOOD COUNT 3.25 10^6/uL (4.20-5.40); RED CELL DISTRIBUTION WIDTH 14.7 % (12.0-15.0); WHITE BLOOD COUNT 5.3 x10^3/uL (4.8-10.8)
[2018-04-15 05:16] LABS: ALBUMIN/GLOBULIN RATIO 0.6 (1.0-2.2); ALKALINE PHOSPHATASE 65 IU/L (42-121); ALT ALANINE AMINOTRANSFERASE < 10 IU/L (10-60); AST ASPARTATE AMINOTRANSFERASE 13 IU/L (10-42); BILIRUBIN,TOTAL 0.5 mg/dL (0.2-1.0); BUN - BLOOD UREA NITROGEN < 5 mg/dL (6-20); CALCIUM 7.5 mg/dL (8.5-10.3); CARBON DIOXIDE - CO2 19 mmol/L (21-32); CHLORIDE 113 mmol/L (101-111); CREATININE 0.4 mg/dL (0.4-1.0); GFR - MDRD 174 (>89); GLUCOSE 127 mg/dL (70-100); SODIUM 136 mmol/L (135-145); TOTAL PROTEIN 5.1 g/dL (6.7-8.2)
[2018-04-15] MEDS: SODIUM CHLORIDE FLUSH 0.9% 10 ML SYRINGE IVP PRN ×3 (06:02→20:39)
[2018-04-15] MEDS: PANTOPRAZOLE 40 MG VIAL IVP SCH (06:02)
[2018-04-15] MEDS: POLYETHYLENE GLYCOL 3350 17 GM PACKET PO SCH (09:13)
[2018-04-15] MEDS: KETOROLAC 15 MG/ML VIAL IVP PRN ×2 (10:09→20:40)
--- NOTE | 2018-04-15 11:45 | PROVIDER PROGRESS NOTE ---
Subjective - General Admit Date: 04/14/18 Procedure Date: 04/11/18 Post Op Days: 7 - Review of Systems Wound/Incisions: positive: Healing well General: positive: No symptoms HEENT: positive: No symptoms Pulmonary: positive: No symptoms Cardiovascular: positive: No symptoms Genitourinary: positive: No symptoms Musculoskeletal: positive: No symptoms Skin: positive: No symptoms Objective - Patient Data Reviewed Vital Signs: Yes Vital Signs: Vital Signs x48h Temp Pulse Resp BP Pulse Ox 04/15/18 07:36 36.8 C 73 19 121/80 98 Weight: Weight 04/13/18 04/14/18 04/15/18 23:59 23:59 23:59 Weight (kg) 60 kg Intake & Output: Intake and Output Totals x24h 04/13/18 04/14/18 04/15/18 23:59 23:59 23:59 Intake Total 2486 1766.667 Output Total 500 200 Balance 1986 1566.667 - Lab Results Lab Results: 04/17/18 06:00 04/15/18 04:30 Other Lab Results: Lab Results x24hrs 04/15/18 04/15/18 04/14/18 Range/Units 04:30 04:30 15:15 WBC 5.3 (4.8-10.8) x10^3/uL RBC 3.25 L (4.20-5.40) 10^6/uL Hgb 10.1 L (12.0-16.0) g/dL Hct 30.6 L (37.0-47.0) % MCV 94.4 (81.0-99.0) fL MCH 31.0 (27.0-31.0) pg MCHC 32.8 (32.0-36.0) g/dL RDW 14.7 (12.0-15.0) % Plt Count 223 (130-450) 10^3/uL MPV 8.2 (7.9-10.8) fL Neut # (Auto) 3.8 (1.5-6.6) 10^3/uL Lymph # (Auto) 0.8 L (1.5-3.5) 10^3/uL [place] # (Auto) 0.6 (0.0-1.0) 10^3/uL Eos # (Auto) 0.2 (0.0-0.7) 10^3/uL Baso # (Auto) 0.0 (0.0-0.1) 10^3/uL Absolute Nucleated RBC 0.00 x10^3/uL Nucleated RBC % 0.1 /100WBC PT (9.9-12.6) secs INR (0.8-1.2) Sodium 136 (135-145) mmol/L Potassium 3.4 L (3.5-5.0) mmol/L Chloride 113 H (101-111) mmol/L Carbon Dioxide 19 L (21-32) mmol/L Anion Gap 4.0 L (6-13) BUN < 5 L (6-20) mg/dL Creatinine 0.4 (0.4-1.0) mg/dL Estimated GFR (MDRD) 174 (>89) Glucose 127 H (70-100) mg/dL Calcium 7.5 L (8.5-10.3) mg/dL Total Bilirubin 0.5 (0.2-1.0) mg/dL AST 13 (10-42) IU/L ALT < 10 L (10-60) IU/L Alkaline Phosphatase 65 (42-121) IU/L Total Protein 5.1 L (6.7-8.2) g/dL Albumin 2.0 L (3.2-5.5) g/dL Globulin 3.1 (2.1-4.2) g/dL Albumin/Globulin Ratio 0.6 L (1.0-2.2) Lipase (22-51) U/L Urine Color YELLOW Urine Clarity CLEAR (CLEAR) Urine pH 6.0 (5.0-7.5) PH Ur Specific [place] >=1.030 H (1.002-1.030) Urine Protein NEGATIVE (NEGATIVE) mg/dL Urine Glucose (UA) NEGATIVE (NEGATIVE) mg/dL Urine Ketones >=80 H (NEGATIVE) mg/dL Urine Occult Blood MODERATE H (NEGATIVE) Urine Nitrite NEGATIVE (NEGATIVE) Urine Bilirubin NEGATIVE (NEGATIVE) Urine Urobilinogen 0.2 (NORMAL) (NORMAL) E.U./dL Ur Leukocyte Esterase NEGATIVE (NEGATIVE) Urine RBC 11-25 H (0-5) /HPF Urine WBC 0-3 (0-5) /HPF Ur Squamous Epith Cells RARE Squamous (<= Few) Urine Bacteria None Seen (None Seen) /HPF Ur Microscopic Review INDICATED Urine Culture Comments NOT INDICATED Urine HCG, Qual NEGATIVE 04/14/18 04/14/18 04/14/18 Range/Units 14:10 14:10 14:10 WBC 7.9 (4.8-10.8) x10^3/uL RBC 3.82 L (4.20-5.40) 10^6/uL Hgb 11.9 L (12.0-16.0) g/dL Hct 35.4 L (37.0-47.0) % MCV 92.7 (81.0-99.0) fL MCH 31.1 H (27.0-31.0) pg MCHC 33.6 (32.0-36.0) g/dL RDW 14.4 (12.0-15.0) % Plt Count 252 (130-450) 10^3/uL MPV 8.3 (7.9-10.8) fL Neut # (Auto) 6.4 (1.5-6.6) 10^3/uL Lymph # (Auto) 0.8 L (1.5-3.5) 10^3/uL [place] # (Auto) 0.6 (0.0-1.0) 10^3/uL Eos # (Auto) 0.0 (0.0-0.7) 10^3/uL Baso # (Auto) 0.0 (0.0-0.1) 10^3/uL Absolute Nucleated RBC 0.00 x10^3/uL Nucleated RBC % 0.0 /100WBC PT 15.6 H (9.9-12.6) secs INR 1.4 H (0.8-1.2) Sodium 137 (135-145) mmol/L Potassium 3.3 L (3.5-5.0) mmol/L Chloride 110 (101-111) mmol/L Carbon Dioxide 17 L (21-32) mmol/L Anion Gap 10.0 (6-13) BUN 7 (6-20) mg/dL Creatinine 0.5 (0.4-1.0) mg/dL Estimated GFR (MDRD) 135 (>89) Glucose 88 (70-100) mg/dL Calcium 8.3 L (8.5-10.3) mg/dL Total Bilirubin 0.7 (0.2-1.0) mg/dL AST 13 (10-42) IU/L ALT < 10 L (10-60) IU/L Alkaline Phosphatase 79 (42-121) IU/L Total Protein 6.5 L (6.7-8.2) g/dL Albumin 2.5 L (3.2-5.5) g/dL Globulin 4.0 (2.1-4.2) g/dL Albumin/Globulin Ratio 0.6 L (1.0-2.2) Lipase 83 H (22-51) U/L Urine Color Urine Clarity (CLEAR) Urine pH (5.0-7.5) PH Ur Specific [place] (1.002-1.030) Urine Protein (NEGATIVE) mg/dL Urine Glucose (UA) (NEGATIVE) mg/dL Urine Ketones (NEGATIVE) mg/dL Urine Occult Blood (NEGATIVE) Urine Nitrite (NEGATIVE) Urine Bilirubin (NEGATIVE) Urine Urobilinogen (NORMAL) E.U./dL Ur Leukocyte Esterase (NEGATIVE) Urine RBC (0-5) /HPF Urine WBC (0-5) /HPF Ur Squamous Epith Cells (<= Few) Urine Bacteria (None Seen) /HPF Ur Microscopic Review Urine Culture Comments Urine HCG, Qual - Current Medications Current Medications: Current Medications Generic Name Dose Route Start Last Admin Trade Name Freq PRN Reason Stop Dose Admin Potassium Chloride/Dextrose/Sod Cl 1,000 mls @ 125 mls/hr 04/14/18 17:00 04/15/18 07:43 IV 125 mls/hr .Q8H KRIS Infusion Acetaminophen 100 mls @ 400 mls/hr 04/14/18 17:00 04/15/18 10:33 Ofirmev IV Infused Q6H KRIS Infusion Cefepime HCl 1 gm/ Sodium 100 mls @ 200 mls/hr 04/15/18 04:00 04/15/18 04:42 Chloride IV 04/19/18 03:59 Infused Q12H KRIS Infusion Metronidazole 250 mg in 50 mls @ 100 mls/hr 04/14/18 18:00 04/15/18 10:01 Flagyl 500 Mg/100 Ml IV 04/19/18 17:59 Infused Q8H KRIS Infusion Ketorolac Tromethamine 15 mg 04/14/18 16:59 04/15/18 10:09 Toradol Inj (15mg) IVP 12/20/18 16:58 15 mg Q6H PRN Administration Abdominal Pain Ondansetron HCl 4 mg 04/14/18 16:50 04/14/18 23:37 Zofran Inj IVP 4 mg Q6HR PRN Administration Nausea / Vomiting Pantoprazole Sodium 40 mg 04/15/18 07:00 04/15/18 06:02 Protonix IVP 40 mg QDAC KRIS Administration Polyethylene Glycol 17 gm 04/15/18 09:00 04/15/18 09:13 Miralax PO Not Given DAILY KRIS Sodium Chloride 10 ml 04/14/18 16:50 04/15/18 06:07 Normal Saline Flush 0.9% IVP 10 ml PRN PRN Administration NEEDED PER PROVIDER ORDERS Sodium Chloride 10 ml 04/14/18 17:00 04/15/18 10:09 Normal Saline Flush 0.9% IVP 10 ml 0100,0900,1700 KRIS Administration - Physical Exam Wound/Incisions: positive: Healing well General Appearance: positive: No acute distress Eyes Bilateral: positive: No lid inflammation, Conjunctivae nml, No scleral icterus ENT: positive: Dry mucous membranes Neck: positive: Trachea midline Respiratory: positive: Chest non-tender, No respiratory distress, Breath sounds nml Cardiovascular: positive: Regular rate & rhythm Abdomen: positive: Nml bowel sounds, No distention, Tenderness (Incisional.) Skin: positive: Color nml Extremities: positive: Non-tender, Nml appearance Neurologic/Psychiatric: positive: Oriented x3 ABX Reporting Has patient been on IV antibiotics over the past 48 hours?: Yes Impression/Plan - Problem List Problem List: Hospital day 1 (readmission), postoperative day 4 following laparoscopic appendectomy for ruptured appendicitis 1) FEN Continue IVF for hydration. 2) ID Continue Cefipime and Flagyl for perforated appendicitis. If patient continues to have "funny tasting" food consider D/Cing Flagyl. 3) Activity Ambulate and out of bed as much as possible.
[2018-04-16] MEDS: ACETAMINOPHEN 1,000 MG/100 ML 100 ML IV SCH ×4 (01:00→18:20)
[2018-04-16] MEDS: metroNIDAZOLE 500 MG/100 ML 250 MG/50 ML BAG IV SCH ×2 (01:32→11:44)
[2018-04-16] MEDS: D5NS W/20 MEQ KCL 1,000 ML IV SCH ×3 (01:34→16:25)
[2018-04-16] MEDS: CEFEPIME 1 GM in SODIUM CHLORIDE 0.9% MINIBAG 100 ML IV SCH ×2 (05:10→16:23)
[2018-04-16] MEDS: SODIUM CHLORIDE FLUSH 0.9% 10 ML SYRINGE IVP SCH ×3 (05:14→10:28)
[2018-04-16] MEDS: PANTOPRAZOLE 40 MG VIAL IVP SCH (08:19)
[2018-04-16] MEDS: POLYETHYLENE GLYCOL 3350 17 GM PACKET PO SCH (08:20)
--- NOTE | 2018-04-16 15:52 | PROVIDER PROGRESS NOTE ---
Subjective - General Admit Date: 04/14/18 Procedure Date: 04/11/18 Post Op Days: 7 Procedure Performed: Laparoscopic appendectomy - Review of Systems Wound/Incisions: positive: Healing well General: positive: No symptoms HEENT: positive: No symptoms Pulmonary: positive: No symptoms Cardiovascular: positive: No symptoms Genitourinary: positive: No symptoms Musculoskeletal: positive: No symptoms Skin: positive: No symptoms Objective - Patient Data Reviewed Vital Signs: Yes Weight: Weight 04/14/18 04/15/18 04/16/18 23:59 23:59 23:59 Weight (kg) 60 kg Intake & Output: Intake and Output Totals x24h 04/14/18 04/15/18 04/16/18 23:59 23:59 23:59 Intake Total 2486 3706.250 1830.00 Output Total 500 200 Balance 1986 3506.250 1830.00 - Lab Results Lab Results: 04/17/18 06:00 04/15/18 04:30 - Current Medications Current Medications: Current Medications Generic Name Dose Route Start Last Admin Trade Name Freq PRN Reason Stop Dose Admin Potassium Chloride/Dextrose/Sod Cl 1,000 mls @ 125 mls/hr 04/14/18 17:00 04/16/18 08:17 IV 125 mls/hr .Q8H KRIS Administration Acetaminophen 100 mls @ 400 mls/hr 04/14/18 17:00 04/16/18 11:59 Ofirmev IV Infused Q6H KRIS Infusion Cefepime HCl 1 gm/ Sodium 100 mls @ 200 mls/hr 04/15/18 04:00 04/16/18 05:49 Chloride IV 04/19/18 03:59 Infused Q12H KRIS Infusion Metronidazole 250 mg in 50 mls @ 100 mls/hr 04/14/18 18:00 04/16/18 12:58 Flagyl 500 Mg/100 Ml IV 04/19/18 17:59 Infused Q8H KRIS Infusion Ketorolac Tromethamine 15 mg 04/14/18 16:59 04/15/18 20:40 Toradol Inj (15mg) IVP 04/19/18 16:58 15 mg Q6H PRN Administration Abdominal Pain Ondansetron HCl 4 mg 04/14/18 16:50 04/14/18 23:37 Zofran Inj IVP 4 mg Q6HR PRN Administration Nausea / Vomiting Pantoprazole Sodium 40 mg 04/15/18 07:00 04/16/18 08:19 Protonix IVP 40 mg QDAC KRIS Administration Polyethylene Glycol 17 gm 04/15/18 09:00 04/16/18 08:20 Miralax PO Not Given DAILY KRIS Sodium Chloride 10 ml 04/14/18 16:50 04/15/18 20:39 Normal Saline Flush 0.9% IVP 10 ml PRN PRN Administration NEEDED PER PROVIDER ORDERS Sodium Chloride 10 ml 04/14/18 17:00 04/16/18 10:28 Normal Saline Flush 0.9% IVP 10 ml 0100,0900,1700 KRIS Administration - Physical Exam Wound/Incisions: positive: Healing well General Appearance: positive: No acute distress (Feels that she is bloated and indeed she has some edema. Tolerated an egg salad sandwich but food still tasing funny.) Eyes Bilateral: positive: No lid inflammation, Conjunctivae nml, No scleral icterus ENT: positive: No signs of dehydration Neck: positive: Trachea midline Respiratory: positive: Chest non-tender, No respiratory distress, Breath sounds nml Cardiovascular: positive: Regular rate & rhythm Abdomen: positive: Non-tender, Nml bowel sounds Skin: positive: Color nml Extremities: positive: Non-tender, Full ROM, Nml appearance Neurologic/Psychiatric: positive: Oriented x3 ABX Reporting Has patient been on IV antibiotics over the past 48 hours?: Yes Impression/Plan - Problem List Problem List: Hospital day 2 POD 5 laparoscopic appendectomy for perforated appendicitis 1) FEN Continue IVF patient starting to look a bit "puffy" but will decrease rate. 2) ID Patient continues afebrile and with normal WBC - no infection. Discontinue Flagyl and see if it helps with po intake. 3) Activity Despite "puffiness" explained that ambulation will be very helpful and patient is very compliant with this - walking in the halls and up in chair. 4) Pain Control adequate with current regimen. Will follow as patient right now cannot tolerate enough po intake to be discharged home.
[2018-04-16] MEDS: KETOROLAC 15 MG/ML VIAL IVP PRN (21:15)
[2018-04-17] MEDS: ACETAMINOPHEN 1,000 MG/100 ML 100 ML IV SCH ×4 (01:00→18:44)
[2018-04-17] MEDS: CEFEPIME 1 GM in SODIUM CHLORIDE 0.9% MINIBAG 100 ML IV SCH ×2 (03:38→16:41)
[2018-04-17] MEDS: PANTOPRAZOLE 40 MG VIAL IVP SCH (06:08)
[2018-04-17 06:09] LABS: BASOPHILS % (AUTO) 0.2 %; EOSINOPHILS # (AUTO) 0.1 10^3/uL (0.0-0.7); EOSINOPHILS % (AUTO) 1.3 %; HGB - HEMOGLOBIN 10.6 g/dL (12.0-16.0); LYMPHOCYTES # (AUTO) 1.2 10^3/uL (1.5-3.5); LYMPHOCYTES % (AUTO) 13.6 %; MEAN CORPUSCULAR HEMOGLOBIN 30.7 pg (27.0-31.0); MEAN CORPUSCULAR HGB CONC 32.5 g/dL (32.0-36.0); MEAN CORPUSCULAR VOLUME 94.4 fL (81.0-99.0); MEAN PLATELET VOLUME 7.8 fL (7.9-10.8); MONOCYTES # (AUTO) 0.9 10^3/uL (0.0-1.0); MONOCYTES % (AUTO) 9.6 %; NEUTROPHILS # (AUTO) 6.7 10^3/uL (1.5-6.6); NEUTROPHILS % (AUTO) 75.3 %; PLT - PLATELET COUNT 335 10^3/uL (130-450); RED BLOOD COUNT 3.46 10^6/uL (4.20-5.40); RED CELL DISTRIBUTION WIDTH 14.7 % (12.0-15.0); WHITE BLOOD COUNT 8.9 x10^3/uL (4.8-10.8)
[2018-04-17] MEDS: SODIUM CHLORIDE FLUSH 0.9% 10 ML SYRINGE IVP SCH ×3 (06:09→18:00)
[2018-04-17] MEDS: POLYETHYLENE GLYCOL 3350 17 GM PACKET PO SCH (07:27)
[2018-04-17] MEDS: D5NS W/20 MEQ KCL 1,000 ML IV SCH (08:34)
[2018-04-17] MEDS: KETOROLAC 15 MG/ML VIAL IVP PRN ×2 (09:23→18:41)
[2018-04-17] MEDS: A & D OINTMENT 5 GM PACKET TOP PRN (11:05)
[2018-04-18] MEDS: D5NS W/20 MEQ KCL 1,000 ML IV SCH (00:56)
[2018-04-18] MEDS: ACETAMINOPHEN 1,000 MG/100 ML 100 ML IV SCH ×2 (01:00→07:15)
[2018-04-18] MEDS: CEFEPIME 1 GM in SODIUM CHLORIDE 0.9% MINIBAG 100 ML IV SCH (04:20)
[2018-04-18] MEDS: KETOROLAC 15 MG/ML VIAL IVP PRN (05:27)
[2018-04-18] MEDS: A & D OINTMENT 5 GM PACKET TOP PRN (05:35)
[2018-04-18] MEDS: PANTOPRAZOLE 40 MG VIAL IVP SCH (06:44)
[2018-04-18] MEDS: SODIUM CHLORIDE FLUSH 0.9% 10 ML SYRINGE IVP SCH ×2 (06:44→07:14)
[2018-04-18] MEDS: POLYETHYLENE GLYCOL 3350 17 GM PACKET PO SCH (07:14)
[2018-04-18 07:55] VITALS: BP 132/86
--- NOTE | 2018-04-18 08:31 | DISCHARGE SUMMARY ---
"Discharge Summary Admit Date: 04/14/18 Discharge Date: 04/18/18 Discharging Provider: Jh Code Status: Attempt Resuscitation Condition at Discharge: Good Discharge Disposition: 01 Home, Self Care - DIAGNOSES Admission Diagnoses: Poor po intake postoperatively, dehydration Discharge Diagnoses with Status of Each Condition: Resolved - HPI History of Present Illness: I performed a laparoscopic appendectomy for perforated appendicitis on April 11. The patient was discharged on April 13 on Bactrim and Flagyl. She returned to the ED with poor po intake on April 14 and admitted for IVF and continued antibiotics. There was no indication of infection - no elevation of WBC and no fever. - CONSULTS | PROCEDURES Consultations: None. Procedures: None. - HOSPITAL COURSE Hospital Course: Uncomplicated. The patient was hydrated but even with the hydration the patient's po intake was poor. Food tasted funny. As a result I stopped the Flagyl and with time her appetite has returned. She remains hydrated. Pain control is adequate. Ambulatory. Repeat CBC has failed to show an increase in WBC. Afebrile throughout. - ALLERGIES Allergies/Adverse Reactions: Allergies Allergy/AdvReac Type Severity Reaction Status Date / Time codeine [Codeine] Allergy Mild Hives Verified 04/14/18 13:17 erythromycin base Allergy Edema Verified 04/14/18 13:17 Penicillins Allergy Edema Verified 04/14/18 17:44 orange AdvReac Intermediate Nausea Verified 04/16/18 09:23 - MEDICATIONS Home Medications: Ambulatory Orders Medication Instructions Recorded Confirmed Clotrimazole/Betamethasone Dip 1 applic TOP BID 04/11/18 04/15/18 [Clotrimazole-Betamethasone Crm] Ketorolac [Toradol] 10 mg PO Q6H 5 Days #20 tablet 04/13/18 04/15/18 Sulfamethox/Trimeth 800/160 1 each PO BID #14 tablet 04/13/18 04/15/18 [Bactrim Ds 800/160] metroNIDAZOLE [Flagyl] 250 mg PO Q6H 7 Days #28 tablet 04/13/18 04/15/18 - PHYSICAL EXAM AT DISCHARGE General Appearance: positive: No acute distress Eyes Bilateral: positive: No lid inflammation, Conjunctivae nml, No scleral icterus ENT: positive: No signs of dehydration Neck: positive: Trachea midline Respiratory: positive: Chest non-tender, No respiratory distress, Breath sounds nml Cardiovascular: positive: Regular rate & rhythm Abdomen: positive: Non-tender, No organomegaly, Nml bowel sounds, No distention Skin: positive: Color nml Extremities: positive: Non-tender, Nml appearance Neurologic/Psychiatric: positive: Oriented x3 - LABS Result Diagrams: 04/17/18 06:00 04/15/18 04:30 - FOLLOW UP Follow Up: 7-10 days in my office (Jh) - TIME SPENT Time Spent in Discharge (Minutes): 30"
--- NOTE | 2018-04-18 08:42 | Discharge Plan ---
Discharge Plan Disposition: 01 Home, Self Care Condition: Good Diet: Regular Activity Restrictions: No lifting >15 pounds for 6 weeks. Shower Restrictions: No Driving Restrictions: No Weight Bearing: Full Weight Additional Instructions or Follow Up instructions: Okay to walk, run, climb stairs, general diet, shower, bathe, swim, have sex. No Smoking: If you smoke, Please STOP! Call for help. Follow-up with: Provider,Other [Primary Care Provider] - Zhao Peñaloza MD [Provider Admit Priv/Credential] -
== END 2018-04-18 10:23 | disposition home or self-care (01) | DRG 641 ==
LOC: ED 12:51 → MS2 16:50
PROVIDERS: ADMIT Surgery; ATTEND Surgery
DX: E86.0 Dehydration (principal); R63.0 Anorexia; Z68.26 Body mass index [BMI] 26.0-26.9, adult; Z98.890 Other specified postprocedural states
CPT/HCPCS: 36415; 74177; 80053; 81001; 81003; 81025; 83690; 85025; 85610; 87045; 87046; 87086; 96360; 99284

== ENCOUNTER 2018-05-03 14:48 | Emergency (ER) | payer MEDICAID ==
[2018-05-03 15:46] LABS: GLUCOSE, URINE (UA) NEGATIVE (NEGATIVE); KETONES,URINE (UA) >=80 mg/dL (NEGATIVE); LEUKOCYTE ESTERASE, URINE NEGATIVE (NEGATIVE); NITRITE,URINE NEGATIVE (NEGATIVE); OCCULT BLOOD,URINE LARGE (NEGATIVE); PROTEIN,URINE 100 mg/dL (NEGATIVE); UROBILINOGEN,URINE 0.2 (NORMAL) E.U./dL (NORMAL)
[2018-05-03] MEDS ORDERED: BENZONATATE 100 MG CAPSULE PO STA (15:46)
[2018-05-03] MEDS ORDERED: BENZOCAINE/MENTHOL LOZENGE MM STA (15:46)
[2018-05-03] MEDS ORDERED: DEXAMETHASONE 10 MG/ML VIAL PO STA (15:46)
[2018-05-03 15:49] LABS: BILIRUBIN,URINE NEGATIVE (NEGATIVE); CLARITY,URINE CLEAR (CLEAR); ICTOTEST,URINE NEGATIVE
[2018-05-03] MEDS ORDERED: CHERRY SYRUP 10 ML UDC PO ONE (15:55)
--- NOTE | 2018-05-03 15:56 | ED Physician Documentation ---
History of Present Illness - Stated complaint Stated Complaint: SWOLLEN THROAT/FEVER - Chief complaint Chief Complaint: Fever - Additonal information Additional information: hx from pt 43 f to ED CC fever sore throat cough soa body achess denies preg no travel mom with similar Review of Systems Constitutional: reports: Fever, Myalgias Throat: reports: Sore throat Respiratory: reports: Cough : denies: Now EGA Skin: denies: Rash PD PAST MEDICAL HISTORY - Past Medical History Cardiovascular: None Respiratory: Sleep apnea Neuro: None Endocrine/Autoimmune: None GI: None [employer] INST[employer]ER: None : None HEENT: Other Psych: Anxiety Musculoskeletal: None Derm: Herpes zoster, Psoriasis - Past Surgical History Past Surgical History: No General: Appendectomy - Present Medications Home Medications: Ambulatory Orders Medication Instructions Recorded Confirmed Azithromycin [Zithromax] 250 mg PO DAILY #4 tablet 05/03/18 Benzonatate [Tessalon Perle] 100 mg PO TID PRN #20 capsule 05/03/18 Dextromethorphan/Benzocaine 1 each PO Q6H PRN #20 lozenge 05/03/18 [Cepacol Sorethroat-Cough Marko] - Allergies Allergies/Adverse Reactions: Allergies Allergy/AdvReac Type Severity Reaction Status Date / Time codeine [Codeine] Allergy Mild Hives Verified 04/14/18 13:17 erythromycin base Allergy Edema Verified 04/14/18 13:17 Penicillins Allergy Edema Verified 04/14/18 17:44 orange AdvReac Intermediate Nausea Verified 05/03/18 14:56 - Social History Does the pt smoke?: Yes Smoking Status: Current every day smoker Does the pt drink ETOH?: Yes Does the pt have substance abuse?: No - Immunizations Immunizations are current?: Yes - POLST Patient has POLST: No PD ED PE NORMAL - Vitals Vital signs reviewed: Yes - HEENT HEENT: Other (markedly enlarged kidding 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 No: Ears normal (isa TMs dull no erythema) - Neck Neck: Supple, no meningeal sign - Cardiac Cardiac: RRR - Respiratory Respiratory: No respiratory distress - Abdomen Abdomen: Soft, Non tender, Other (surigical sites healign well, no HSM) - Derm Derm: No rash - Extremities Extremities: No deformity, No edema - Neuro Neuro: Alert and oriented X 3 Results - Vitals Vitals: Vital Signs - 24 hr 05/03/18 05/03/18 14:53 17:36 Temperature 39.3 C H 37.9 C H Heart Rate 138 H 110 H Respiratory 20 16 Rate Blood Pressure 99/65 125/81 H O2 Saturation 95 96 Oxygen O2 Source Room air - Labs Labs: Laboratory Tests 05/03/18 05/03/18 05/03/18 15:05 15:28 15:30 Urine Color YELLOW Urine Clarity CLEAR Urine pH 6.0 Ur Specific [place] >=1.030 H Urine Protein 100 H Urine Glucose (UA) NEGATIVE Urine Ketones >=80 H Urine Occult Blood LARGE H Urine Nitrite NEGATIVE Urine Bilirubin NEGATIVE Urine Urobilinogen 0.2 (NORMAL) Ur Leukocyte Esterase NEGATIVE Urine RBC 0-5 Urine WBC 0-3 Ur Squamous Epith Cells FEW Squamous Urine Bacteria Few Urine Casts 3-5 Hyaline Casts Urine Mucus Few Strands Ur Microscopic Review INDICATED Urine Culture Comments NOT INDICATED Infectious [place] Assay Influenza A (Rapid) Negative Influenza B (Rapid) Negative Group A Strep Rapid POSITIVE H 05/03/18 15:40 Urine Color Urine Clarity Urine pH Ur Specific [place] Urine Protein Urine Glucose (UA) Urine Ketones Urine Occult Blood Urine Nitrite Urine Bilirubin Urine Urobilinogen Ur Leukocyte Esterase Urine RBC Urine WBC Ur Squamous Epith Cells Urine Bacteria Urine Casts Urine Mucus Ur Microscopic Review Urine Culture Comments Infectious [place] Assay NEGATIVE Influenza A (Rapid) Influenza B (Rapid) Group A Strep Rapid PD MEDICAL DECISION MAKING - ED course ED course: pt emcyn allergy was unknown rxn to an eye drop think likely safe to try zmax as she is allergic to penicllin pt felt better and VS improved will dc Departure - Departure Disposition: 01 Home, Self Care Clinical Impression: Strep pharyngitis Condition: Good Instructions: ED Strep Pharyngitis Conf Prescriptions: Azithromycin [Zithromax] 250 mg PO DAILY #4 tablet Benzonatate [Tessalon Perle] 100 mg PO TID PRN #20 capsule PRN Reason: Cough Dextromethorphan/Benzocaine [Cepacol Sorethroat-Cough Marko] 1 each PO Q6H PRN #20 lozenge PRN Reason: sore throat cough Comments: The flu swabs, mono test, urine test, and chest xray were all fine. the strep test was positive. So we started you on antibiotics As well as symptomatic medications You need to rest and drink plenty of fluids. I wrote you a note for work. Return if worse Forms: Activity restrictions
[2018-05-03] MEDS ORDERED: IBUPROFEN 400 MG TABLET PO STA (16:00)
[2018-05-03 16:01] LABS: BACTERIA,URINE Few /HPF (None Seen); RBC,URINE 0-5 /HPF (0-5); SQUAMOUS EPITHELIAL CELL,UR FEW Squamous (<= Few)
[2018-05-03 16:02] LABS: MUCUS,URINE Few Strands
--- NOTE | 2018-05-03 17:03 | XRAY Report ---
Reason: fever cough Procedure Date: 05/03/2018 Accession Number: [id number] / [id number] Procedure: XR - Chest 2 View X-Ray CPT Code: 03990 FULL RESULT: EXAM: CHEST RADIOGRAPHY EXAM DATE: 05/03/2018 04:42 PM. CLINICAL HISTORY: Cough and fever. Sore throat. COMPARISON: CHEST 2 VIEW PA/LAT 07/03/2014 2:10 PM. TECHNIQUE: 2 views. FINDINGS: Lungs/Pleura: No focal opacities evident. No pleural effusion. No pneumothorax. Normal volumes. Mediastinum: Heart and mediastinal contours are unremarkable. Other: No bony abnormality noted. IMPRESSION: Normal 2-view chest radiography. RAD[facility]
[2018-05-03] MEDS ORDERED: AZITHROMYCIN 250 MG TABLET PO STA (17:32)
[2018-05-03 17:36] VITALS: BP 125/81
== END 2018-05-03 17:42 | disposition home or self-care (01) ==
LOC: ED 14:48
DX: J02.0 Streptococcal pharyngitis (principal); F17.200 Nicotine dependence, unspecified, uncomplicated
CPT/HCPCS: 36415; 71046; 81001; 86308; 87275; 87276; 87430; 99283; A9270; 81003; 81025; 87086

== ENCOUNTER 2018-11-14 17:22 | Outpatient (CLI) | payer MEDICAID ==
--- NOTE | 2018-11-15 10:32 | Ultrasound Report ---
Reason: PELVIC PAIN Procedure Date: 11/14/2018 Accession Number: [id number] / [id number] Procedure: US - Pelvic w/Transvaginal CPT Code: FULL RESULT: EXAM: PELVIC ULTRASOUND EXAM DATE: 11/14/2018 06:09 PM. CLINICAL HISTORY: Postsurgical pelvic pain. Surgery was for ruptured appendicitis, 2017. COMPARISON: ABDOMEN/PELVIS W/ 04/14/2018 3:43 PM. TECHNIQUE: Realtime transabdominal pelvic scan performed to identify the uterus and adnexa and as an overview of other pelvic structures, followed by transvaginal scan to provide greater detail of the uterus and adnexa, with static image documentation. FINDINGS: Uterus: 7.9 x 3.4 x 5.0 cm, volume 71 cc. Retroverted position. Uterus overall appears lobular with heterogeneous echotexture. Masses: Posterior fundal 1.4 x 1.0 x 1.5 cm fibroid and posterior fundal left-sided 0.8 x 0.5 x 0.7 cm fibroid. Endometrium: 1.1 mm. Normal. Cervix: Nabothian cysts are noted. Right Ovary: 2.4 x 1.5 x 1.7 cm, volume 3.4 cc. Normal echotexture and blood flow. Left Ovary: 3.5 x 2.0 x 2.7 cm, volume 9.8 cc. There is a small amount of loculated fluid associated with the left adnexal region. Free Fluid: See above. Other: The area indicated as painful by the patient corresponds to the scar overlying the pelvis, expected scar tissue is seen by ultrasound. IMPRESSION: Heterogeneous fibroid uterus. Small amount of loculated fluid in the left adnexal region. Sonographically, the painful area of surgical incision is within normal limits. RADIA
== END 2018-11-14 17:23 | disposition home or self-care (01) ==
LOC: DI 17:22
PROVIDERS: ATTEND Family Medicine
DX: D25.9 Leiomyoma of uterus, unspecified (principal)
CPT/HCPCS: 76830; 76856

== ENCOUNTER 2019-05-21 16:29 | Emergency (ER) | payer OTHER, MEDICAID ==
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
--- NOTE | 2019-05-21 18:47 | CT Report ---
Reason: headache Procedure Date: 05/21/2019 Accession Number: [id number] / [id number] Procedure: CT - HEAD WO CPT Code: Final Report FULL RESULT: EXAM: CT HEAD EXAM DATE: 05/21/2019 05:58 PM. CLINICAL HISTORY: Headache. Neck pain. Dropped heavy object on head one week ago. COMPARISON: None. TECHNIQUE: Multiaxial CT images were obtained from the foramen magnum to the vertex. Reformats: Sagittal and coronal. IV contrast: None. In accordance with CT protocol optimization, one or more of the following dose reduction techniques were utilized for this exam: automated exposure control, adjustment of mA and/or KV based on patient size, or use of iterative reconstructive technique. FINDINGS: Parenchyma: No intraparenchymal hemorrhage. No evidence of mass, midline shift, or CT findings of infarction. Alba-white differentiation is distinct. Extraaxial Spaces: Normal for age. No subdural or epidural collections identified. Ventricles: Normal in size and position. Sinuses and Orbits: Imaged paranasal sinuses, orbits, and mastoids show no significant abnormality. Bones: No evidence of fracture or calvarial defect. Other: None. IMPRESSION: Normal head CT. RADIA
--- NOTE | 2019-05-21 18:50 | CT Report ---
Reason: neck pain Procedure Date: 05/21/2019 Accession Number: [id number] / [id number] Procedure: CT - CERVICAL SPINE WO CPT Code: Final Report FULL RESULT: EXAM: CT CERVICAL SPINE WITHOUT CONTRAST DATE: 05/21/2019 05:58 PM. HISTORY: Persistent pain after trauma. COMPARISONS: None. TECHNIQUE: Thin-section axial images were acquired of the cervical spine without contrast. Post-processing: Coronal and sagittal reformats. Other: None. In accordance with CT protocol optimization, one or more of the following dose reduction techniques were utilized for this exam: automated exposure control, adjustment of mA and/or KV based on patient size, or use of iterative reconstructive technique. FINDINGS: Alignment: No scoliosis or spondylolisthesis. Bones: No fracture or bone lesion. Interspace Levels/Facets: Minimal disk space narrowing at C4-C5 and C6-C7 with marginal lipping. Other disk spaces well preserved. No significant degenerative changes. Musculature: Unremarkable. Other: The paravertebral and prevertebral soft tissues are unremarkable. The lung apices are clear. IMPRESSION: No acute disease. RADIA
[2019-05-21 19:03] VITALS: BP 122/99
== END 2019-05-21 19:30 | disposition home or self-care (01) ==
LOC: ED 16:29
DX: S16.1XXA Strain of muscle, fascia and tendon at neck level, initial encounter (principal); S09.90XA Unspecified injury of head, initial encounter; W20.8XXA Other cause of strike by thrown, projected or falling object, initial encounter; Y93.89 Activity, other specified; Y92.512 Supermarket, store or market as the place of occurrence of the external cause; Y99.0 Civilian activity done for income or pay; F17.200 Nicotine dependence, unspecified, uncomplicated
CPT/HCPCS: 1040M; 70450; 72125; 99283; 99284

== ENCOUNTER 2020-03-20 19:09 | Emergency (ER) | payer BC, OTHER ==
--- NOTE | 2020-03-20 19:42 | ED Physician Documentation ---
PD HPI CHEST PAIN - Stated complaint Stated Complaint: BLOOD WORK - Chief complaint Chief Complaint: Cardiac - History obtained from History obtained from: Patient - Additional information Additional information: She has been having trouble because of herniated disks since May. She went to her physician 2 days ago and an osteopathic manipulation was done which made her feel great for just a little bit but then subsequently developed some sharp fleeting chest pains and a thump in her chest. She was seen in urgent care today and there was a concern for abnormal EKG and she was referred here. Review of Systems Ten Systems: 10 systems reviewed and negative Constitutional: denies: Fever, Chills Cardiac: reports: Chest pain / pressure, Palpitations. denies: Pedal edema, Calf pain Respiratory: denies: Dyspnea, Cough, Hemoptysis, Wheezing PD PAST MEDICAL HISTORY - Past Medical History Past Medical History: Yes Cardiovascular: None Respiratory: Sleep apnea Neuro: None Endocrine/Autoimmune: None GI: None UNCLAIMED PROPERTY OFFICER: None : None HEENT: Other Psych: Anxiety Musculoskeletal: Other Derm: Herpes zoster, Psoriasis Other Past Medical History: Herniated disc on neck - Past Surgical History Past Surgical History: Yes General: Appendectomy - Present Medications Home Medications: Ambulatory Orders Medication Instructions Recorded Confirmed Cyclobenzaprine [Flexeril] 10 mg PO TID PRN #20 tablet 05/21/19 03/20/20 - Allergies Allergies/Adverse Reactions: Allergies Allergy/AdvReac Type Severity Reaction Status Date / Time codeine [Codeine] Allergy Mild Hives Verified 03/20/20 19:20 erythromycin base Allergy Edema Verified 03/20/20 19:20 Penicillins Allergy Edema Verified 03/20/20 19:20 orange AdvReac Intermediate Nausea Verified 03/20/20 19:20 - Social History Does the pt smoke?: Yes Smoking Status: Current every day smoker Does the pt drink ETOH?: Yes Does the pt have substance abuse?: No - Immunizations Immunizations are current?: Yes - POLST Patient has POLST: No PD ED PE NORMAL - Vitals Vital signs reviewed: Yes - General General: Alert and oriented X 3, No acute distress - HEENT HEENT: PERRL, EOMI - Neck Neck: Supple, no meningeal sign, No bony TTP - Cardiac Cardiac: RRR, No murmur - Respiratory Respiratory: No respiratory distress, Clear bilaterally - Abdomen Abdomen: Non tender - Back Back: No CVA TTP, No spinal TTP - Derm Derm: Normal color, Warm and dry - Extremities Extremities: No edema, No calf tenderness / cord - Neuro Neuro: Alert and oriented X 3, Normal speech Results - Vitals Vitals: Vital Signs - 24 hr 03/20/20 03/20/20 03/20/20 19:12 19:25 20:05 Temperature 36.5 C Heart Rate 90 84 68 Respiratory 18 16 20 Rate Blood Pressure 177/104 H 159/87 H 149/87 H O2 Saturation 99 100 100 03/20/20 20:45 Temperature 36.8 C Heart Rate 68 Respiratory 12 Rate Blood Pressure 126/68 O2 Saturation 99 Oxygen O2 Source Room air - EKG (time done) 1915 Rate: Rate (enter#) (68) Rhythm: NSR [place]: Normal Intervals: Normal MD QRS: Normal Ischemia: Normal ST segments - Labs Labs: Laboratory Tests 03/20/20 03/20/20 03/20/20 19:45 19:45 19:45 WBC 8.2 RBC 4.49 Hgb 14.0 Hct 42.4 MCV 94.4 MCH 31.2 H MCHC 33.0 RDW 13.5 Plt Count 284 MPV 10.1 Neut # (Auto) 4.9 Lymph # (Auto) 2.4 [place] # (Auto) 0.7 Eos # (Auto) 0.1 Baso # (Auto) 0.1 Absolute Nucleated RBC 0.00 Nucleated RBC % 0.0 Sodium 137 Potassium 3.5 Chloride 103 Carbon Dioxide 24 Anion Gap 10.0 BUN 10 Creatinine 0.7 Estimated GFR (MDRD) 90 Glucose 96 Calcium 8.6 Total Bilirubin 0.3 AST 16 ALT 10 Alkaline Phosphatase 59 Troponin I High Sens 2.5 Total Protein 7.1 Albumin 3.6 Globulin 3.5 Albumin/Globulin Ratio 1.0 Lipase 39 - Rads (name of study) 1v chest Radiology: EMP read contemporaneously (NAD) PD MEDICAL DECISION MAKING - ED course ED course: Her EKG is normalized here, I wonder if in the clinic there was a lead placement problem. Either way is reasonable to do a troponin here in the department. Otherwise the pain is very atypical. Heart score 1 Departure - Departure Disposition: 01 Home, Self Care Clinical Impression: Atypical chest pain Condition: Good Record reviewed to determine appropriate education?: Yes Instructions: ED Chest Pain Atypical Unkn Cause Comments: Call your doctor to arrange a follow-up appointment, make the next available appointment. In the interim, return anytime if worse or if new symptoms develop. Discharge Date/Time: 03/20/20 20:46
[2020-03-20 19:53] LABS: BASOPHILS # (AUTO) 0.1 10^3/uL (0.0-0.1); BASOPHILS % (AUTO) 0.9 %; EOSINOPHILS # (AUTO) 0.1 10^3/uL (0.0-0.7); EOSINOPHILS % (AUTO) 1.6 %; LYMPHOCYTES # (AUTO) 2.4 10^3/uL (1.5-3.5); LYMPHOCYTES % (AUTO) 29.3 %; MEAN CORPUSCULAR HEMOGLOBIN 31.2 pg (27.0-31.0); MEAN CORPUSCULAR VOLUME 94.4 fL (81.0-99.0); MEAN PLATELET VOLUME 10.1 fL (7.9-10.8); MONOCYTES # (AUTO) 0.7 10^3/uL (0.0-1.0); MONOCYTES % (AUTO) 8.3 %; NEUTROPHILS # (AUTO) 4.9 10^3/uL (1.5-6.6); NEUTROPHILS % (AUTO) 59.5 %; PLT - PLATELET COUNT 284 10^3/uL (130-450); RED BLOOD COUNT 4.49 10^6/uL (4.20-5.40); RED CELL DISTRIBUTION WIDTH 13.5 % (12.0-15.0); WHITE BLOOD COUNT 8.2 x10^3/uL (4.8-10.8)
[2020-03-20 20:05] LABS: ALBUMIN 3.6 g/dL (3.2-5.5); BILIRUBIN,TOTAL 0.3 mg/dL (0.2-1.0); CALCIUM 8.6 mg/dL (8.5-10.3); CREATININE 0.7 mg/dL (0.4-1.0); TOTAL PROTEIN 7.1 g/dL (6.7-8.2)
--- NOTE | 2020-03-20 20:37 | XRAY Report ---
PROCEDURE: Chest 1 View X-Ray INDICATIONS: Chest Pain TECHNIQUE: One view of the chest was acquired. COMPARISON: None FINDINGS: Surgical changes and devices: None. Lungs and pleura: No pleural effusions or pneumothorax. Lungs are clear. Mediastinum: Mediastinal contours appear normal. Heart size is normal. Bones and chest wall: No suspicious bony lesions. Overlying soft tissues appear unremarkable. IMPRESSION: No acute cardiopulmonary abnormality Reviewed by: Nam Castellon on 03/20/2020 8:36 PM [facility] Approved by: Nam Castellon on 03/20/2020 8:36 PM [facility] Station ID: [id number]
[2020-03-20 20:46] VITALS: BP 126/68
== END 2020-03-20 20:46 | disposition home or self-care (01) ==
LOC: ED 19:09
DX: R07.89 Other chest pain (principal); F17.200 Nicotine dependence, unspecified, uncomplicated
CPT/HCPCS: 36415; 71045; 80053; 83690; 84484; 85025; 93005; 99283; 99284

== ENCOUNTER 2022-06-29 12:38 | Outpatient (CLI) | payer BC | END 2022-06-29 12:39 | disposition home or self-care (01) | LOC: DI 12:38 | PROVIDERS: ATTEND Physician Assistant | DX: R01.1 Cardiac murmur, unspecified (principal) | CPT/HCPCS: 93306 ==

== ENCOUNTER 2023-11-09 16:29 | Outpatient (CLI) | payer OTHER ==
[2023-11-09] MEDS ORDERED: DIATRIZOATE MEGLU/DIATRIZO SOD 30 ML BOTTLE PO ONE (16:34)
[2023-11-09] MEDS ORDERED: iohexoL-300 100 ML VIAL ONE (16:34)
[2023-11-09 16:57] LABS: CREATININE 0.7 mg/dL (0.6-1.3)
[2023-11-09] MEDS: DIATRIZOATE MEGLU/DIATRIZO SOD 30 ML BOTTLE PO ONE (18:02)
[2023-11-09] MEDS: iohexoL-300 100 ML VIAL IVP ONE (18:03)
--- NOTE | 2023-11-10 08:56 | CT Report ---
PROCEDURE: Abdomen/Pelvis W INDICATIONS: ABD BLOATING, ABD PAIN CONTRAST: OMNI 300 100ML TECHNIQUE: After the administration of intravenous contrast, a CT scan of the abdomen and pelvis was performed. Images were recorded and evaluated at appropriate window settings. Reformats: coronal and sagittal. F or radiation dose reduction, the following was used: automated exposure control, adjustment of mA and /or kV according to patient size. COMPARISON: 04/14/2018 FINDINGS: Image quality: Diagnostic. Lower chest: Clear lung bases. Small hiatal hernia. Liver: Mild diffuse hepatic steatosis. Fatty sparing in the gallbladder fossa. Gallbladder: No radiopaque stones or wall thickening. Biliary tree: No intrahepatic or extrahepatic dilation, accounting for age. Spleen: No splenomegaly. Pancreas: No pancreatic ductal dilation. Adrenals: No adrenal nodule. Kidneys and ureters: Symmetric enhancement. No hydronephrosis or nephrolithiasis. No solid mass or cy st requiring follow-up. Normal ureters. Stomach, bowel and peritoneum: Stomach and small bowel are normal. The appendix was not seen. Mild di verticular disease in the proximal sigmoid colon. No acute inflammation. No pathologic free fluid. Lymph nodes: No central or retroperitoneal adenopathy. Vessels: Normal caliber abdominal aorta, IVC, and portal vein. Patent portal vein. PELVIS Reproductive organs: Normal CT appearance of the retroverted uterus and ovaries. Bladder: No abnormal wall thickening, accounting for underdistention. Pelvic lymph nodes: No pelvic adenopathy by size criteria. Bones: No aggressive osseous abnormality. Other: No significant ventral or inguinal hernia. IMPRESSION: Mild hepatic steatosis. Small hiatal hernia. No acute abnormalities in the abdomen or pelvis. Reviewed by: Lila Porter MD on 11/10/2023 8:54 AM PDT Approved by: Lila Porter MD on 11/10/2023 8:54 AM PDT Station ID: [id number]
== END 2023-11-09 16:30 | disposition home or self-care (01) ==
LOC: LAB 16:29
PROVIDERS: ATTEND Physician Assistant
DX: R14.0 Abdominal distension (gaseous) (principal); K59.00 Constipation, unspecified; R10.13 Epigastric pain; K76.0 Fatty (change of) liver, not elsewhere classified; K44.9 Diaphragmatic hernia without obstruction or gangrene
CPT/HCPCS: 36415; 74177; 82565; Q9963; Q9967